=== PATIENT | female | born 1935 | race Caucasian/White ===

== ENCOUNTER → 2018-01-15 15:15 | Outpatient (CLI) | payer MEDICARE, SELFPAY ==
[2018-01-15 17:23] LABS: Absolute Lymphocyte Count 2.33 X10^3/ul (0.83-4.51); Absolute Neutrophil Count 4.8 X10^3/uL (2.0-7.7); Basophil# 0.04 X10^3/uL; Basophil% 0.5 % (0-1); Eosinophil# 0.21 X10^3/uL; Eosinophils% 2.6 % (0-5); Hemoglobin 14.2 g/dl (12.0-15.0); Lymphocyte # 2.33 X10^3/ul (4.0); Lymphocyte % 28.8 % (19-41); Mean Corp Hgb Conc 33.8 g/gl (32-36); Mean Corpuscular Hgb 31.8 pg (27.0-32.0); Mean Corpuscular Volume 94.2 fL (81-99); Mean Platelet Vol. 10.1 fl (6.2-12.0); Monocyte# 0.69 X10^3/uL; Monocyte% 8.5 % (0-10); Neutrophil % 59.5 % (47-70); Platelet Count 302 K/mm3 (150-450); RBC Distribution Width CV 13.3 % (11.6-14.6); RBC Distribution Width SD 44.8 fl (35.1-43.9); Red Blood Count 4.46 M/mm3 (4.2-5.4); White Blood Count 8.1 K/mm3 (4.4-11.0)
[2018-01-15 17:26] LABS: POSITIVE COUNT NO; POSITIVE DIFFERENTIAL NO; POSITIVE MORPHOLOGY NO
[2018-01-15 17:42] LABS: Vitamin D,25 Hydroxy 54.9 ng/mL (29.95-100.01)
[2018-01-15 17:53] LABS: ALB/GLOB Ratio 1.2 RATIO (0.9-2.4); AST(SGOT) 24 U/L (15-37); Alanine Aminotransfer ALT/SGPT 43 U/L (13-56); Alkaline Phosphatase 83 U/L (45-117); Anion Gap 11 (5-15); BUN 15 mg/dL (7-18); BUN/Creat Ratio 14.6 RATIO (10-20); Calcium,Total 9.1 mg/dL (8.5-10.1); Chloride 101 mmol/L (98-107); Creatinine, Serum 1.03 mg/dL (0.55-1.02); EST Glomerular Filtration Rate 55 mL/min (>60); Est Glom Filt Rate - Afr Amer 66 mL/min (>60); Globulin 3.2 g/dL (2.2-4.2); Glucose 78 mg/dL (74-106); Potassium 3.3 mmol/L (3.5-5.1); Protein, Total 7.2 g/dL (6.4-8.2); Sodium Level 138 mmol/L (136-145); Thyroid Stim Hormone (TSH) 1.58 uIU/mL (0.358-3.74)
== END ==
PROVIDERS: Visit Provider Family Medicine Geriatric Medicine
DX: I10 Essential (primary) hypertension (principal); E55.9 Vitamin D deficiency, unspecified
CPT/HCPCS: 36415; 80053; 82306; 84443; 85025

== ENCOUNTER → 2018-02-07 09:58 | Outpatient (CLI) | payer MEDICARE, SELFPAY ==
[2018-02-07 16:37] LABS: Anion Gap 11 (5-15); BUN 16 mg/dL (7-18); BUN/Creat Ratio 15.5 RATIO (10-20); Chloride 103 mmol/L (98-107); Creatinine, Serum 1.03 mg/dL (0.55-1.02); EST Glomerular Filtration Rate 55 mL/min (>60); Est Glom Filt Rate - Afr Amer 66 mL/min (>60); Glucose 69 mg/dL (74-106); Potassium 4.1 mmol/L (3.5-5.1); Sodium Level 138 mmol/L (136-145)
== END ==
PROVIDERS: Family Provider Internal Medicine; PCP Internal Medicine; Visit Provider Family Medicine Geriatric Medicine
DX: E87.6 Hypokalemia (principal)
CPT/HCPCS: 36415; 80048

== ENCOUNTER → 2018-06-29 10:14 | Outpatient (CLI) | payer MEDICARE, SELFPAY | PROVIDERS: Family Provider Family Medicine; PCP Family Medicine; Visit Provider Obstetrics & Gynecology | DX: Z12.31 Encounter for screening mammogram for malignant neoplasm of breast (principal) | CPT/HCPCS: 77063; 77067 ==

== ENCOUNTER → 2018-10-01 08:02 | Outpatient (CLI) | payer MEDICARE, SELFPAY | PROVIDERS: Family Provider Family Medicine; PCP Family Medicine; Referring Provider Nurse Practitioner Family; Visit Provider Nurse Practitioner Family | DX: K57.92 Diverticulitis of intestine, part unspecified, without perforation or abscess without bleeding (principal) ==

== ENCOUNTER → 2018-11-30 07:49 | Outpatient (CLI) | payer MEDICARE, SELFPAY ==
[2018-11-30 10:34] LABS: ALB/GLOB Ratio 1.3 RATIO (0.9-2.4); AST(SGOT) 15 U/L (15-37); Alanine Aminotransfer ALT/SGPT 30 U/L (13-56); Albumin, Serum 3.8 g/dL (3.2-5.0); Alkaline Phosphatase 107 U/L (45-117); Anion Gap 12 (5-15); BUN 18 mg/dL (7-18); BUN/Creat Ratio 16.2 RATIO (10-20); Calcium,Total 9.2 mg/dL (8.5-10.1); Chloride 104 mmol/L (98-107); Cholesterol 291 mg/dL (200); Creatinine, Serum 1.11 mg/dL (0.55-1.02); EST Glomerular Filtration Rate 50 mL/min (>60); Est Glom Filt Rate - Afr Amer 61 mL/min (>60); Glucose 90 mg/dL (74-106); High Density Lipoprotein 49 mg/dL; Potassium 4.5 mmol/L (3.5-5.1); Protein, Total 6.8 g/dL (6.4-8.2); Sodium Level 143 mmol/L (136-145); Triglycerides 223 mg/dL; Very Low Density Lipoprotein 45 mg/dL (5-40)
== END ==
PROVIDERS: Family Provider Family Medicine; PCP Family Medicine; Referring Provider Family Medicine; Visit Provider Family Medicine
DX: E78.5 Hyperlipidemia, unspecified (principal)
CPT/HCPCS: 36415; 80053; 80061

== ENCOUNTER → 2019-01-11 11:36 | Outpatient (CLI) | payer MEDICARE, SELFPAY | PROVIDERS: Family Provider Family Medicine; PCP Family Medicine; Referring Provider Urology; Visit Provider Urology | DX: N39.0 Urinary tract infection, site not specified (principal) | CPT/HCPCS: 87086; 87088; 87186 ==

== ENCOUNTER → 2019-02-26 11:20 | Outpatient (CLI) | payer MEDICARE, SELFPAY ==
--- NOTE | 2019-02-26 11:26 | US_ITS ---
STUDY: RENAL ULTRASOUND - COMPLETE REASON FOR EXAM: Female, 83 years old. Recurrent urinary tract infections. TECHNIQUE: Ultrasound evaluation of the kidneys was performed with real-time and static chavarria-scale imaging. COMPARISON: CT abdomen and pelvis 12/12/2014. FINDINGS: RIGHT KIDNEY: 10.3 x 5.4 x 4.2 cm. Normal cortical thickness 1.3 cm. Normal cortical echotexture. There is no mass, calculus or hydronephrosis. Right renal cyst 16 x 15 x 15 mm, simple cystic features. LEFT KIDNEY: 10.7 x 4.9 x 4.6 cm. Normal cortical thickness 1.6 cm, normal cortical echotexture. There is no hydronephrosis, mass or calculus. Left renal cysts measuring 31, and 12 mm. Simple cystic features. BLADDER: Distended volume 165.4 mL. Post void volume 22.8 mL, small postvoid residual. Urinary bladder appears normal in caliber, contour and wall thickness. There is no intraluminal debris. Bilateral ureteral jets are visible. US/Kidney and Bladder IMPRESSION: Benign bilateral renal cysts. Otherwise unremarkable sonographic features of each kidney. Electronically Signed: Jalen Clark MD at 14:43 EDT Tel , Service support ,
== END ==
PROVIDERS: Family Provider Family Medicine; PCP Family Medicine; Referring Provider Urology; Visit Provider Urology
DX: Z87.440 Personal history of urinary (tract) infections (principal)
CPT/HCPCS: 76770

== ENCOUNTER → 2019-12-13 09:38 | Outpatient (CLI) | payer MEDICARE, SELFPAY ==
[2019-12-13 13:15] LABS: ALB/GLOB Ratio 1.4 RATIO (0.9-2.4); AST(SGOT) 16 U/L (15-37); Alanine Aminotransfer ALT/SGPT 24 U/L (13-56); Alkaline Phosphatase 75 U/L (45-117); Anion Gap 7 (5-15); BUN 13 mg/dL (7-18); BUN/Creat Ratio 12.7 RATIO (10-20); Calcium,Total 9.5 mg/dL (8.5-10.1); Chloride 102 mmol/L (98-107); Cholesterol 309 mg/dL (200); Creatinine, Serum 1.02 mg/dL (0.55-1.02); EST Glomerular Filtration Rate 55 mL/min (>60); Est Glom Filt Rate - Afr Amer 67 mL/min (>60); Globulin 2.8 g/dL (2.2-4.2); Glucose 89 mg/dL (74-106); High Density Lipoprotein 55 mg/dL; Potassium 3.5 mmol/L (3.5-5.1); Protein, Total 6.8 g/dL (6.4-8.2); Sodium Level 139 mmol/L (136-145); Triglycerides 166 mg/dL; Very Low Density Lipoprotein 33 mg/dL (5-40)
== END ==
PROVIDERS: PCP Family Medicine; Referring Provider Family Medicine; Visit Provider Family Medicine
DX: I10 Essential (primary) hypertension (principal)
CPT/HCPCS: 36415; 80053; 80061

== ENCOUNTER → 2019-12-24 08:13 | Outpatient (CLI) | payer MEDICARE, SELFPAY ==
--- NOTE | 2019-12-24 08:15 | BD_ITS ---
STUDY: DUAL ENERGY X-RAY ABSORPTIOMETRY / DXA REASON FOR EXAM: Female, 84 years old. Age of total hysterectomy 29. Pat is 151.4# and 64.25 and quot; a loss of 2.75 and quot; per pat. Past hx of taking an HRT. Patient takes calcium and a multi-vit. Takes HCTZ. Exercises a lot. Hx of L$-S1 laminectomy. TECHNIQUE: Bone Mineral Density (BMD) measurements of lumbar spine and bilateral hips were obtained. COMPARISON: Comparison is made with prior examination dated July 27, 2017. FINDINGS: Lumbar Spine (L1-L4): g/cm2 (1.179) / T-score (0.1) / Z-score (2.0) Findings are suggestive of normal bone density with a low fracture risk. Left Femur Total: g/cm2 (0.954) / T-score (-0.4) / Z-score (1.7) Left Femoral Neck: g/cm2 (0.922) / T-score (-0.8) / Z-score (1.5) Right Femur Total: g/cm2 (0.893) / T-score (-0.9) / Z-score (1.3) Right Femoral Neck: g/cm2 (0.877) / T-score (-1.2) / Z-score (1.1) The T-Scores on the most recent prior examination were: Lumbar Spine (L1-L4): There has been worsening of bone density since the previous examination. Left Femur Total: which represents a worsening of 4.8%. Right Femur Total: which represents a worsening of 6.9%. BD/Dexa Bone Density Study IMPRESSION: The patient is considered osteopenic as outlined below according to World [employer] Organization (WHO) criteria with a low fracture risk. There has been worsening of bone density since the previous examination. Reference Information: The T-score is the number of standard deviations above or below the standard which is normal for young adults at their peak bone mineral density. The World Health Organization (WHO) interprets the T-scores as follows: Above -1 Normal bone density Between -1 and -2.5 Osteopenia Equal to / or below -2.5 Osteoporosis As a practical clinical guideline, osteopenia may be graded as follows: Mild -1 through -1.5 Moderate -1.6 through -2.0 Severe -2.1 through -2.4 The Z-score is the number of standard deviations above or below age-matched controls. A Z-score of less than -1.5 would be considered abnormal. References: 1. NIH Osteoporosis and Related Bone Diseases http://www.osteo.org 2. International Society for Clinical Densitometry http://www.iscd.org 3. National Osteoporosis Foundation http://www.nof.org Electronically Signed: Ciro Sawyer, at 9:27 EST , Service support ,
== END ==
PROVIDERS: PCP Family Medicine; Referring Provider Family Medicine; Visit Provider Family Medicine
DX: Z00.00 Encounter for general adult medical examination without abnormal findings (principal); Z78.0 Asymptomatic menopausal state
CPT/HCPCS: 77080

== ENCOUNTER → 2021-03-24 08:13 | Outpatient (CLI) | payer MEDICARE, SELFPAY ==
--- NOTE | 2021-03-24 08:25 | CT_ITS ---
STUDY: CT ABDOMEN AND PELVIS WITHOUT CONTRAST REASON FOR EXAM: Female, 85 years old. L FLANK PAIN . UTI RADIATION DOSAGE (If Supplied By Facility): CTDIvol = ( 8.64 ) mGy, DLP = ( 373.54 ) mGycm TECHNIQUE: Transaxial images were obtained from the dome of the diaphragm to the symphysis pubis without oral contrast, and without intravenous contrast. Sagittal and coronal images were reconstructed. Individualized dose optimization techniques were used for this CT. COMPARISON: Comparison is made with prior study dated 12/20/2014. FINDINGS: Mild degree of increased markings at the lung bases suggestive of underlying atelectasis and/or scarring. These have improved as compared to prior study. The visualized portions of the heart are within normal limits. Normal liver. Findings suggestive of a possible small gallstones. Normal spleen. Normal pancreas. Normal bilateral adrenal glands. Normal right kidney. 2 cm cyst in the upper pole of the left kidney. There is a small hiatal hernia. Normal small intestine. There are multiple colonic diverticula consistent with diverticulosis. The patient is status post appendectomy. There is diffuse atherosclerotic calcification of the abdominal aorta and its major visceral branches, without a demonstrated aneurysm. Normal inferior vena cava. Normal retroperitoneum. Normal urinary bladder. There is absence of the uterus consistent with a prior hysterectomy. Small bilateral inguinal hernias containing fat. There are diffuse degenerative changes of the visualized lumbar spine. Minimal anterior listhesis of L3 on L4. CT/Abdomen/Pelvis without Cont IMPRESSION: Sigmoid diverticulosis. Small hiatal hernia. 2 cm cyst in the upper pole of the left kidney. 1.5 cm cyst in the lower pole of the left kidney. Questionable small gallstones. Electronically Signed: Ciro Sawyer MD at 9:23 EDT , Service support ,
== END ==
PROVIDERS: PCP Family Medicine; Referring Provider Urology; Visit Provider Urology
DX: N39.0 Urinary tract infection, site not specified (principal); K44.9 Diaphragmatic hernia without obstruction or gangrene; K57.30 Diverticulosis of large intestine without perforation or abscess without bleeding
CPT/HCPCS: 74176

== ENCOUNTER → 2021-08-31 08:38 | Outpatient (CLI) | payer MEDICARE, SELFPAY ==
--- NOTE | 2021-08-31 08:47 | US_ITS ---
STUDY: RENAL ULTRASOUND - COMPLETE REASON FOR EXAM: Female, 85 years old. L FLANK PAIN/RECURRENT UTI TECHNIQUE: Ultrasound evaluation of the kidneys was performed with real-time and static cahvarria-scale imaging. COMPARISON: Comparison is made with prior study dated 02/26/2019. FINDINGS: RIGHT KIDNEY: Normal location of the right kidney, which is normal in size. The right kidney measures 10.9 cm x 4.2 sign by 4.1 cm. There is a normal cortex of the right kidney. The renal cortex measures 1.4 cm. There is a 2 cm x 1.9 cm x 1.7 cm right renal cyst. There are no right renal calculi. There is no right hydronephrosis. DISTAL RIGHT URETER: There is non-visualization of the distal right ureter. There is no demonstrated right ureterovesical junction calculus. There is a visualized right ureteral jet. LEFT KIDNEY: Normal location of the left kidney, which is normal in size. The left kidney measures 13.8 cm x 5.27 x 6.3 cm. There is a normal cortex of the left kidney. The renal cortex measures 2.1 cm. Multiple left renal cysts are seen. The largest measures 7.4 cm x 6.6 x 6.6 cm. There are no left renal calculi. There is no left hydronephrosis. DISTAL LEFT URETER: There is non-visualization of the distal left ureter. There is no demonstrated left ureterovesical junction calculus. There is a visualized left ureteral jet. BLADDER: The distended urinary bladder has a volume of 173.6 ml. There is a normal wall thickness of the distended urinary bladder. There is no demonstrated mass within the urinary bladder. There are no demonstrated bladder calculi. US/Kidney and Bladder IMPRESSION: Bilateral renal cysts more prominent on the left side. Electronically Signed: Ciro Sawyer MD at 13:45 EST , Service support ,
== END ==
PROVIDERS: PCP Family Medicine; Referring Provider Urology; Visit Provider Urology
DX: N39.0 Urinary tract infection, site not specified (principal); R10.9 Unspecified abdominal pain
CPT/HCPCS: 76770

== ENCOUNTER 2022-01-18 09:05 | Outpatient (CLI) | payer MEDICARE, SELFPAY ==
[2022-01-18 12:17] LABS: Absolute Lymphocyte Count 1.84 X10^3/uL (0.83-4.51); Absolute Neutrophil Count 5.2 X10^3/uL (2.0-7.7); Basophil# 0.05 X10^3/uL; Basophil% 0.6 % (0-1); Eosinophil# 0.35 X10^3/uL; Eosinophils% 4.3 % (0-5); Hematocrit 40.7 % (37-47); Hemoglobin 13.1 g/dL (12.0-15.0); Lymphocyte # 1.84 X10^3/ul (0.83-4.51); Lymphocyte % 22.9 % (19-41); Mean Corp Hgb Conc 32.2 g/dL (32-36); Mean Corpuscular Hgb 31.3 pg (27.0-32.0); Mean Corpuscular Volume 97.4 fL (81-99); Monocyte# 0.63 X10^3/uL; Monocyte% 7.8 % (0-10); NRBC Flagged by Analyzer 0 % (0-5); Neutrophil # 5.16 X10^3/uL (2.7-7.7); Neutrophil % 64.2 % (47-70); Platelet Count 323 K/mm3 (150-450); RBC Distribution Width CV 13.9 % (11.6-14.6); RBC Distribution Width SD 50.2 fl (35.1-43.9); Red Blood Count 4.18 M/mm3 (4.2-5.4); White Blood Count 8.1 K/mm3 (4.4-11.0)
[2022-01-18 12:34] LABS: Vitamin D,25 Hydroxy 91.9 ng/mL
[2022-01-18 13:11] LABS: ALB/GLOB Ratio 1.1 RATIO (0.9-2.4); AST(SGOT) 15 U/L (15-37); Alanine Aminotransfer ALT/SGPT 20 U/L (13-56); Albumin, Serum 3.9 g/dL (3.2-5.0); Alkaline Phosphatase 75 U/L (45-117); Anion Gap 8 (5-15); BUN 27 mg/dL (7-18); BUN/Creat Ratio 14.8 RATIO (10-20); Calcium,Total 9.7 mg/dL (8.5-10.1); Chloride 102 mmol/L (98-107); Cholesterol 300 mg/dL (200); Creatinine, Serum 1.82 mg/dL (0.55-1.02); EST Glomerular Filtration Rate 28 mL/min (>60); Est Glom Filt Rate - Afr Amer 34 mL/min (>60); Globulin 3.5 g/dL (2.2-4.2); Glucose 92 mg/dL (74-106); High Density Lipoprotein 54 mg/dL; Magnesium 2.2 mg/dL (1.6-2.6); Potassium 3.8 mmol/L (3.5-5.1); Protein, Total 7.4 g/dL (6.4-8.2); Sodium Level 135 mmol/L (136-145); Thyroid Stim Hormone (TSH) 2.01 uIU/mL (0.358-3.74); Triglycerides 232 mg/dL; Very Low Density Lipoprotein 46 mg/dL (5-40)
[2022-01-18 13:21] LABS: Hemoglobin A1c 5.1 % (3.8-5.6)
== END 2022-01-18 23:59 | disposition home or self-care (01) ==
LOC: BIMLAB 09:07
PROVIDERS: PCP Internal Medicine; Referring Provider Internal Medicine; Visit Provider Internal Medicine
DX: E86.0 Dehydration (principal); M85.80 Other specified disorders of bone density and structure, unspecified site; I10 Essential (primary) hypertension; K21.9 Gastro-esophageal reflux disease without esophagitis; E78.5 Hyperlipidemia, unspecified; R73.9 Hyperglycemia, unspecified; Z86.73 Personal history of transient ischemic attack (TIA), and cerebral infarction without residual deficits
CPT/HCPCS: 36415; 80053; 80061; 82306; 83036; 83735; 84443; 85025

== ENCOUNTER 2022-01-25 08:49 | Outpatient (CLI) | payer MEDICARE, SELFPAY ==
[2022-01-25 12:43] LABS: Anion Gap 9 (5-15); BUN 35 mg/dL (7-18); BUN/Creat Ratio 20.1 RATIO (10-20); Calcium,Total 9.5 mg/dL (8.5-10.1); Chloride 102 mmol/L (98-107); Creatinine, Serum 1.74 mg/dL (0.55-1.02); EST Glomerular Filtration Rate 30 mL/min (>60); Est Glom Filt Rate - Afr Amer 36 mL/min (>60); Glucose 98 mg/dL (74-106); Sodium Level 134 mmol/L (136-145)
== END 2022-01-25 23:59 | disposition home or self-care (01) ==
LOC: BIMLAB 08:50
PROVIDERS: PCP Internal Medicine; Referring Provider Internal Medicine; Visit Provider Internal Medicine
DX: I10 Essential (primary) hypertension (principal); R79.89 Other specified abnormal findings of blood chemistry
CPT/HCPCS: 36415; 80048

== ENCOUNTER → 2022-07-21 | Outpatient (CLI) | payer MEDICARE, SELFPAY ==
[2022-07-21 09:30] LABS: Absolute Lymphocyte Count 1.93 X10^3/uL (0.83-4.51); Absolute Neutrophil Count 5.9 X10^3/uL (2.0-7.7); Basophil# 0.06 X10^3/uL; Basophil% 0.7 % (0-1); Eosinophil# 0.41 X10^3/uL; Eosinophils% 4.6 % (0-5); Hematocrit 41.1 % (37-47); Hemoglobin 13.4 g/dL (12.0-15.0); Lymphocyte # 1.93 X10^3/ul (0.83-4.51); Lymphocyte % 21.6 % (19-41); Mean Corp Hgb Conc 32.6 g/dL (32-36); Mean Corpuscular Volume 98.1 fL (81-99); Mean Platelet Vol. 9.6 fl (6.2-12.0); Monocyte# 0.64 X10^3/uL; Monocyte% 7.2 % (0-10); NRBC Flagged by Analyzer 0 % (0-5); Neutrophil # 5.86 X10^3/uL (2.7-7.7); Neutrophil % 65.6 % (47-70); Platelet Count 293 K/mm3 (150-450); RBC Distribution Width CV 13.3 % (11.6-14.6); Red Blood Count 4.19 M/mm3 (4.2-5.4); White Blood Count 8.9 K/mm3 (4.4-11.0)
[2022-07-21 10:12] LABS: ALB/GLOB Ratio 1.2 RATIO (0.9-2.4); AST(SGOT) 20 U/L (15-37); Alanine Aminotransfer ALT/SGPT 30 U/L (13-56); Alkaline Phosphatase 93 U/L (45-117); Anion Gap 7 (5-15); BUN 28 mg/dL (7-18); BUN/Creat Ratio 18.2 RATIO (10-20); Calcium,Total 9.5 mg/dL (8.5-10.1); Chloride 105 mmol/L (98-107); Cholesterol 313 mg/dL (200); Creatinine, Serum 1.54 mg/dL (0.55-1.02); EST Glomerular Filtration Rate 34 mL/min (>60); Est Glom Filt Rate - Afr Amer 41 mL/min (>60); Globulin 3.4 g/dL (2.2-4.2); Glucose 100 mg/dL (74-106); High Density Lipoprotein 57 mg/dL; Potassium 4.4 mmol/L (3.5-5.1); Protein, Total 7.4 g/dL (6.4-8.2); Sodium Level 140 mmol/L (136-145); Triglycerides 195 mg/dL; Very Low Density Lipoprotein 39 mg/dL (5-40)
== END | disposition home or self-care (01) ==
LOC: LAB 09:01
PROVIDERS: PCP Internal Medicine; Visit Provider Internal Medicine
DX: I10 Essential (primary) hypertension (principal); E78.5 Hyperlipidemia, unspecified; R79.89 Other specified abnormal findings of blood chemistry; Z86.73 Personal history of transient ischemic attack (TIA), and cerebral infarction without residual deficits
CPT/HCPCS: 36415; 80053; 80061; 85025

== ENCOUNTER → 2023-01-19 | Outpatient (CLI) | payer MEDICARE, SELFPAY ==
[2023-01-19 16:38] LABS: Absolute Lymphocyte Count 2.03 X10^3/uL (0.83-4.51); Absolute Neutrophil Count 4.2 X10^3/uL (2.0-7.7); Basophil# 0.05 X10^3/uL; Basophil% 0.7 % (0-1); Eosinophil# 0.32 X10^3/uL; Eosinophils% 4.5 % (0-5); Hematocrit 42.5 % (37-47); Hemoglobin 13.5 g/dL (12.0-15.0); Lymphocyte # 2.03 X10^3/ul (0.83-4.51); Lymphocyte % 28.2 % (19-41); Mean Corp Hgb Conc 31.8 g/dL (32-36); Mean Corpuscular Hgb 30.9 pg (27.0-32.0); Mean Corpuscular Volume 97.3 fL (81-99); Mean Platelet Vol. 9.8 fl (6.2-12.0); Monocyte# 0.58 X10^3/uL; Monocyte% 8.1 % (0-10); NRBC Flagged by Analyzer 0 % (0-5); Neutrophil # 4.18 X10^3/uL (2.7-7.7); Neutrophil % 58.1 % (47-70); Platelet Count 283 K/mm3 (150-450); RBC Distribution Width CV 13.1 % (11.6-14.6); RBC Distribution Width SD 46.3 fl (35.1-43.9); Red Blood Count 4.37 M/mm3 (4.2-5.4); White Blood Count 7.2 K/mm3 (4.4-11.0)
[2023-01-19 17:16] LABS: Vitamin B12 339 pg/mL (211-911); Vitamin D,25 Hydroxy 105.2 ng/mL
[2023-01-19 17:20] LABS: ALB/GLOB Ratio 1.3 RATIO (0.9-2.4); AST(SGOT) 13 U/L (15-37); Alanine Aminotransfer ALT/SGPT 19 U/L (13-56); Albumin, Serum 4.1 g/dL (3.2-5.0); Alkaline Phosphatase 86 U/L (45-117); Anion Gap 7 (5-15); BUN 31 mg/dL (7-18); BUN/Creat Ratio 17.3 RATIO (10-20); Calcium,Total 9.5 mg/dL (8.5-10.1); Chloride 101 mmol/L (98-107); Cholesterol 282 mg/dL (200); Creatinine, Serum 1.79 mg/dL (0.55-1.02); EST Glomerular Filtration Rate 29 mL/min (>60); Est Glom Filt Rate - Afr Amer 35 mL/min (>60); Globulin 3.1 g/dL (2.2-4.2); Glucose 99 mg/dL (74-106); High Density Lipoprotein 49 mg/dL; Magnesium 2.4 mg/dL (1.6-2.6); Potassium 3.6 mmol/L (3.5-5.1); Protein, Total 7.2 g/dL (6.4-8.2); Sodium Level 136 mmol/L (136-145); Thyroid Stim Hormone (TSH) 1.53 uIU/mL (0.358-3.74); Triglycerides 239 mg/dL; Very Low Density Lipoprotein 48 mg/dL (5-40)
== END | disposition home or self-care (01) ==
LOC: BIMLAB 14:59
PROVIDERS: PCP Internal Medicine; Visit Provider Internal Medicine
DX: R79.89 Other specified abnormal findings of blood chemistry (principal); Z13.220 Encounter for screening for lipoid disorders; I10 Essential (primary) hypertension; E78.5 Hyperlipidemia, unspecified; E53.8 Deficiency of other specified B group vitamins; E55.9 Vitamin D deficiency, unspecified; K21.9 Gastro-esophageal reflux disease without esophagitis; M54.2 Cervicalgia; G89.29 Other chronic pain
CPT/HCPCS: 36415; 80053; 80061; 82306; 82607; 83735; 84443; 85025

== ENCOUNTER → 2023-07-17 | Outpatient (CLI) | payer MEDICARE, SELFPAY ==
[2023-07-17 09:15] LABS: Absolute Neutrophil Count 5.7 X10^3/uL (2.0-7.7); Basophil# 0.06 X10^3/uL; Basophil% 0.7 % (0-1); Eosinophil# 0.39 X10^3/uL; Eosinophils% 4.5 % (0-5); Hematocrit 41.8 % (37-47); Hemoglobin 13.8 g/dL (12.0-15.0); Lymphocyte % 21.8 % (19-41); Mean Corpuscular Hgb 32.4 pg (27.0-32.0); Mean Corpuscular Volume 98.1 fL (81-99); Mean Platelet Vol. 9.1 fl (6.2-12.0); Monocyte# 0.65 X10^3/uL; Monocyte% 7.5 % (0-10); NRBC Flagged by Analyzer 0 % (0-5); Neutrophil # 5.69 X10^3/uL (2.7-7.7); Neutrophil % 65.2 % (47-70); Platelet Count 265 K/mm3 (150-450); RBC Distribution Width CV 13.1 % (11.6-14.6); RBC Distribution Width SD 46.9 fl (35.1-43.9); Red Blood Count 4.26 M/mm3 (4.2-5.4); White Blood Count 8.7 K/mm3 (4.4-11.0)
[2023-07-17 09:46] LABS: Vitamin D,25 Hydroxy 58.3 ng/mL
[2023-07-17 10:00] LABS: ALB/GLOB Ratio 1.1 RATIO (0.9-2.4); AST(SGOT) 21 U/L (15-37); Alanine Aminotransfer ALT/SGPT 28 U/L (13-56); Albumin, Serum 3.9 g/dL (3.2-5.0); Alkaline Phosphatase 93 U/L (45-117); Anion Gap 7 (5-15); BUN 27 mg/dL (7-18); BUN/Creat Ratio 16.9 RATIO (10-20); Chloride 102 mmol/L (98-107); Cholesterol 313 mg/dL (200); EST Glomerular Filtration Rate 32 mL/min (>60); Est Glom Filt Rate - Afr Amer 39 mL/min (>60); Globulin 3.4 g/dL (2.2-4.2); Glucose 97 mg/dL (74-106); High Density Lipoprotein 56 mg/dL; Potassium 3.8 mmol/L (3.5-5.1); Protein, Total 7.3 g/dL (6.4-8.2); Sodium Level 135 mmol/L (136-145); Thyroid Stim Hormone (TSH) 1.95 uIU/mL (0.358-3.74); Triglycerides 167 mg/dL; Very Low Density Lipoprotein 33 mg/dL (5-40)
== END | disposition home or self-care (01) ==
LOC: LAB 08:55
PROVIDERS: PCP Internal Medicine; Referring Provider Internal Medicine; Visit Provider Internal Medicine
DX: E78.5 Hyperlipidemia, unspecified (principal); R79.89 Other specified abnormal findings of blood chemistry; I10 Essential (primary) hypertension; E55.9 Vitamin D deficiency, unspecified; K21.9 Gastro-esophageal reflux disease without esophagitis; Z86.73 Personal history of transient ischemic attack (TIA), and cerebral infarction without residual deficits
CPT/HCPCS: 36415; 80053; 80061; 82306; 84443; 85025

== ENCOUNTER → 2024-01-15 | Outpatient (CLI) | payer MEDICARE, SELFPAY ==
[2024-01-15 12:41] LABS: Absolute Lymphocyte Count 1.38 X10^3/uL (0.83-4.51); Absolute Neutrophil Count 5.3 X10^3/uL (2.0-7.7); Basophil# 0.06 X10^3/uL; Basophil% 0.8 % (0-1); Eosinophils% 3.9 % (0-5); Hemoglobin 12.9 g/dL (12.0-15.0); Lymphocyte # 1.38 X10^3/ul (0.83-4.51); Lymphocyte % 17.9 % (19-41); Mean Corp Hgb Conc 31.5 g/dL (32-36); Mean Corpuscular Hgb 30.6 pg (27.0-32.0); Mean Corpuscular Volume 97.2 fL (81-99); Monocyte# 0.61 X10^3/uL; Monocyte% 7.9 % (0-10); NRBC Flagged by Analyzer 0 % (0-5); Neutrophil # 5.34 X10^3/uL (2.7-7.7); Neutrophil % 69.2 % (47-70); Platelet Count 271 K/mm3 (150-450); RBC Distribution Width CV 13.5 % (11.6-14.6); RBC Distribution Width SD 48.5 fl (35.1-43.9); Red Blood Count 4.22 M/mm3 (4.2-5.4); White Blood Count 7.7 K/mm3 (4.4-11.0)
[2024-01-15 13:25] LABS: Vitamin D,25 Hydroxy 59.5 ng/mL
[2024-01-15 13:29] LABS: ALB/GLOB Ratio 1.2 RATIO (0.9-2.4); AST(SGOT) 17 U/L (15-37); Alanine Aminotransfer ALT/SGPT 19 U/L (13-56); Albumin, Serum 3.7 g/dL (3.2-5.0); Alkaline Phosphatase 89 U/L (45-117); Anion Gap 5 (5-15); BUN 29 mg/dL (7-18); BUN/Creat Ratio 18.4 RATIO (10-20); Calcium,Total 9.5 mg/dL (8.5-10.1); Chloride 109 mmol/L (98-107); Cholesterol 277 mg/dL (200); Creatinine, Serum 1.58 mg/dL (0.55-1.02); EST Glomerular Filtration Rate 33 mL/min (>60); Est Glom Filt Rate - Afr Amer 40 mL/min (>60); Globulin 3.2 g/dL (2.2-4.2); Glucose 94 mg/dL (74-106); High Density Lipoprotein 53 mg/dL; Potassium 4.6 mmol/L (3.5-5.1); Protein, Total 6.9 g/dL (6.4-8.2); Sodium Level 141 mmol/L (136-145); Thyroid Stim Hormone (TSH) 1.65 uIU/mL (0.358-3.74); Triglycerides 162 mg/dL; Very Low Density Lipoprotein 32 mg/dL (5-40)
== END | disposition home or self-care (01) ==
LOC: BIMLAB 09:02
PROVIDERS: PCP Internal Medicine; Visit Provider Internal Medicine
DX: E55.9 Vitamin D deficiency, unspecified (principal); I63.9 Cerebral infarction, unspecified; R79.89 Other specified abnormal findings of blood chemistry; M54.2 Cervicalgia; G89.29 Other chronic pain; I34.1 Nonrheumatic mitral (valve) prolapse; K21.9 Gastro-esophageal reflux disease without esophagitis; I10 Essential (primary) hypertension
CPT/HCPCS: 36415; 80053; 80061; 82306; 84443; 85025

== ENCOUNTER → 2024-07-15 | Outpatient (CLI) | payer MEDICARE, SELFPAY ==
[2024-07-15 12:24] LABS: Absolute Lymphocyte Count 1.29 X10^3/uL (0.83-4.51); Absolute Neutrophil Count 5.7 X10^3/uL (2.0-7.7); Basophil# 0.05 X10^3/uL; Basophil% 0.6 % (0-1); Eosinophil# 0.28 X10^3/uL; Eosinophils% 3.5 % (0-5); Hematocrit 42.6 % (37-47); Hemoglobin 13.7 g/dL (12.0-15.0); Lymphocyte # 1.29 X10^3/ul (0.83-4.51); Lymphocyte % 16.2 % (19-41); Mean Corp Hgb Conc 32.2 g/dL (32-36); Mean Corpuscular Hgb 31.4 pg (27.0-32.0); Mean Corpuscular Volume 97.7 fL (81-99); Mean Platelet Vol. 9.8 fl (6.2-12.0); Monocyte% 7.5 % (0-10); NRBC Flagged by Analyzer 0 % (0-5); Neutrophil # 5.72 X10^3/uL (2.7-7.7); Neutrophil % 71.8 % (47-70); Platelet Count 274 K/mm3 (150-450); RBC Distribution Width CV 13.2 % (11.6-14.6); Red Blood Count 4.36 M/mm3 (4.2-5.4)
[2024-07-15 13:08] LABS: ALB/GLOB Ratio 1.2 RATIO (0.9-2.4); AST(SGOT) 14 U/L (15-37); Alanine Aminotransfer ALT/SGPT 18 U/L (13-56); Albumin, Serum 3.9 g/dL (3.2-5.0); Alkaline Phosphatase 82 U/L (45-117); Anion Gap 8 (5-15); BUN 24 mg/dL (7-18); BUN/Creat Ratio 16.4 RATIO (10-20); Calcium,Total 9.6 mg/dL (8.5-10.1); Chloride 105 mmol/L (98-107); Cholesterol 296 mg/dL (200); Creatinine, Serum 1.46 mg/dL (0.55-1.02); EST Glomerular Filtration Rate 36 mL/min (>60); Est Glom Filt Rate - Afr Amer 44 mL/min (>60); Globulin 3.3 g/dL (2.2-4.2); Glucose 96 mg/dL (74-106); High Density Lipoprotein 63 mg/dL; Magnesium 2.2 mg/dL (1.6-2.6); Protein, Total 7.2 g/dL (6.4-8.2); Sodium Level 139 mmol/L (136-145); Triglycerides 249 mg/dL; Very Low Density Lipoprotein 50 mg/dL (5-40)
== END | disposition home or self-care (01) ==
LOC: BIMLAB 09:03
PROVIDERS: PCP Internal Medicine; Referring Provider Internal Medicine; Visit Provider Internal Medicine
DX: I10 Essential (primary) hypertension (principal); E78.5 Hyperlipidemia, unspecified; K21.9 Gastro-esophageal reflux disease without esophagitis; E55.9 Vitamin D deficiency, unspecified; R79.89 Other specified abnormal findings of blood chemistry; Z13.220 Encounter for screening for lipoid disorders; Z86.73 Personal history of transient ischemic attack (TIA), and cerebral infarction without residual deficits
CPT/HCPCS: 36415; 80053; 80061; 82306; 83735; 84443; 85025

== ENCOUNTER → 2025-01-15 | Outpatient (CLI) | payer MEDICARE, SELFPAY ==
[2025-01-15 13:06] LABS: Absolute Lymphocyte Count 1.38 X10^3/uL (0.83-4.51); Absolute Neutrophil Count 9.6 X10^3/uL (2.0-7.7); Basophil# 0.04 X10^3/uL; Basophil% 0.3 % (0-1); Eosinophil# 0.16 X10^3/uL; Eosinophils% 1.3 % (0-5); Erythrocyte Sedimentation Rate 34 mm/hr (0-30); Hematocrit 38.2 % (37-47); Hemoglobin 12.5 g/dL (12.0-15.0); Lymphocyte # 1.38 X10^3/ul (0.83-4.51); Lymphocyte % 11.5 % (19-41); Mean Corp Hgb Conc 32.7 g/dL (32-36); Mean Corpuscular Hgb 30.3 pg (27.0-32.0); Mean Corpuscular Volume 92.5 fL (81-99); Mean Platelet Vol. 8.9 fl (6.2-12.0); Monocyte# 0.73 X10^3/uL; Monocyte% 6.1 % (0-10); NRBC Flagged by Analyzer 0 % (0-5); Neutrophil % 80.5 % (47-70); Platelet Count 596 K/mm3 (150-450); RBC Distribution Width CV 12.6 % (11.6-14.6); RBC Distribution Width SD 43.1 fl (35.1-43.9); Red Blood Count 4.13 M/mm3 (4.2-5.4)
[2025-01-15 13:33] LABS: ALB/GLOB Ratio 0.7 RATIO (0.9-2.4); AST(SGOT) 15 U/L (<=31); Alanine Aminotransfer ALT/SGPT 11 U/L (<=34); Alkaline Phosphatase 118 U/L (35-104); Anion Gap 16 (5-15); BUN 21 mg/dL (4-19); Calcium,Total 8.6 mg/dL (7.6-11.0); Carbon Dioxide 20.8 mmol/L (21.0-32.0); Chloride 97 mmol/L (98-108); Creatinine, Serum 1.39 mg/dL (0.70-1.20); EST Glomerular Filtration Rate 36 (>60); Free T3 2.5 pg/mL (2.18-3.98); Globulin 4.5 g/dL (2.2-4.2); Glucose 76 mg/dL (70-99); Magnesium 2.1 mg/dL (1.5-2.2); Potassium 4.3 mmol/L (3.3-5.1); Protein, Total 7.6 g/dL (5.9-8.4); Sodium Level 134 mmol/L (133-145); Total Bilirubin 0.45 mg/dL (0.00-1.30); Vitamin B12 652 pg/mL (180-914); Vitamin D,25 Hydroxy 66.2 ng/mL (30-100)
[2025-01-16 12:08] LABS: ANTINUCLEAR ANTIBODIES DIRECT Positive (Negative); Anti-Centromere B Ab <0.2 AI (0.0-0.9); Anti-Chromatin <0.2 AI (0.0-0.9); Anti-Jo <0.2 AI (0.0-0.9); Anti-Scleroderma-70 AB <0.2 AI (0.0-0.9); Anti-dsDNA Ab <1 IU/mL (0-9); SJOGREN'S Anti-SS-A test < 0.2 AI (0.0-0.9); SJOGREN'S Anti-SS-B test < 0.2 AI (0.0-0.9); Smith Ab <0.2 AI (0.0-0.9)
[2025-01-16 19:23] LABS: Rheumatoid Factor 12.9 IU/mL (<15)
== END | disposition home or self-care (01) ==
LOC: BIMLAB 09:45
PROVIDERS: PCP Internal Medicine; Referring Provider Internal Medicine; Visit Provider Internal Medicine
DX: R53.83 Other fatigue (principal); M35.3 Polymyalgia rheumatica; E55.9 Vitamin D deficiency, unspecified; E53.8 Deficiency of other specified B group vitamins
CPT/HCPCS: 36415; 80053; 82306; 82607; 83735; 84439; 84443; 84481; 85025; 85652; 86038; 86140; 86225; 86235; 86431

== ENCOUNTER → 2025-03-19 | Outpatient (CLI) | payer MEDICARE, SELFPAY ==
[2025-03-19 12:28] LABS: Erythrocyte Sedimentation Rate 11 mm/hr (0-30)
== END | disposition home or self-care (01) ==
LOC: BIMLAB 09:37
PROVIDERS: PCP Internal Medicine; Referring Provider Internal Medicine; Visit Provider Internal Medicine
DX: M35.3 Polymyalgia rheumatica (principal)
CPT/HCPCS: 36415; 85652; 86140

== ENCOUNTER 2025-09-08 08:59 | Inpatient (IN) | payer MEDICARE, SELFPAY ==
[2025-09-08] VITALS (19 sets, daily range): BP systolic 125–198; BP diastolic 99–174; PULSE 107–124; RESP 16–31; TEMP 36.4–36.9; O2SAT 86–98; BMI 24.7; BMI 23.4
--- NOTE | 2025-09-08 09:12 | RAD_ITS ---
PROCEDURE: CHEST 1 VIEW (PORTABLE) 09/08/2025 REASON FOR EXAM: CHEST PAIN TECHNIQUE: Frontal view of the chest. COMPARISON: None FINDINGS: Hardware: EKG electrodes are seen. Heart: Heart is nonenlarged. Lungs: Lungs are clear. Bones: Degenerative changes are identified within the thoracic spine. RAD/Chest 1 View (Portable) IMPRESSION: No Acute Findings. Reading Location: [id number]
--- NOTE | 2025-09-08 09:12 | EKG12_ITS ---
Test Reason : sob Blood Pressure : */* mmHG Vent. 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
--- NOTE | 2025-09-08 09:13 | EDS_ITS ---
HPI History of Present Illness Chief Complaint: Shortness of Breath Detail of Chief Complaint: Shortness of breath and chest pain Informant: patient Narrative Narrative: Patient presents with chest pain and shortness of breath that started 3 days ago. Patient states she woke up feeling very nauseated short of breath and chest pressure. Since that time she has noticed any time she has any activity she feels very short of breath and nauseated and developed chest pressure. Rest seems to resolve the symptoms. Seen by her primary care physician in the office today and referred to the emergency department. Patient had a heart cath in 2016 that she states was clean. She has no heart history otherwise. She does have history of hypertension and history of PMR. Denies recent travel or surgery [facility] Medical History (Updated 09/08/25 @ 11:[address] Sandip Malone, ) Abnormal EKG Dyspnea on exertion Chest tightness Long-term current use of steroids History of diverticulitis Abdominal discomfort in left lower quadrant Fatigue PMR (polymyalgia rheumatica) COVID Home Medications ?Medication ?Instructions ?Recorded ?Last Taken ?Type aspirin 81 mg chewable tablet 81 mg PO .COMPLEX 09/07/25 History ascorbic acid (vitamin C) 500 mg 500 mg PO DAILY 01/1509/08/25 History capsule ibuprofen 200 mg capsule (Motrin 400 mg PO Q6H PRN fev er or pain 01/15/25 Unknown History IB) omeprazole 20 mg capsule,delayed 20 mg PO DAILY #90 ca ps 01/15/25 09/08/25 Rx release metoprolol tartrate 50 mg tablet 50 mg PO BID #180 tab s 02/24/25 09/07/25 Rx hydrochlorothiazide 25 mg tablet 12.5 mg (1/2 x 25 mg) PO DAILY #90 04/21/25 09/08/25 Rx tabs latanoprost 0.005 % eye drops 1 drp ophthalmic (eye) Q HS 05/14/25 Unknown History prednisone 1 mg tablet 3 mg (3 x 1 mg) PO QDAY #300 tabs 08/25/25 09/08/25 Rx magnesium 200 mg tablet 200 mg PO DAILY 09/08/25 History potassium gluconate 500 mg (83 mg) 500 mg PO DAILY 09/08/25 History tablet Allergy/AdvReac Type Severity Reaction Status Date / Time lisinopril Allergy Mild cough Verified 09/08/25 07:51 acetaminophen (From Percocet) Allergy unknown Verified 09/08/25 07:51 ciprofloxacin (From Cipro) Allergy Hives Verified 09/08/25 07:51 fentanyl Allergy Vomiting Verified 09/08/25 07:51 hydromorphone (From Dilaudid) Allergy unknown Verified 09/08/25 07:51 NSAIDS (Non-Steroidal Allergy unknown Verified 09/08/25 07:51 Anti-Inflamma oxycodone Allergy unknown Verified 09/08/25 07:51 apixaban (From Eliquis) AdvReac Abd Verified 09/08/25 07:51 cramps/diarrhea codeine AdvReac Vomiting Verified 09/08/25 07:51 hydroxychloroquine (From AdvReac Nausea Verified 09/08/25 07:51 Plaquenil) levofloxacin (From Levaquin) AdvReac Nausea/Vom/ Verified 09/08/25 07:51 Diarrhea meperidine HCl (From Demerol) AdvReac Vomiting Verified 09/08/25 07:51 morphine AdvReac Itching Verified 09/08/25 07:51 Peszonj-DFO-SeF Reductase AdvReac Upset Verified 09/08/25 07:51 Inhibitor (Dlkzicu-Njy-Ibw Stomach Reductase Inhibitor) tramadol HCl (From Ultram) AdvReac Vomiting Verified 09/08/25 07:51 Family History Other Cancer Heart disease Surgical History History of carpal tunnel surgery H/O laminectomy S/P right rotator cuff repair H/O: hysterectomy S/P appendectomy Social History Smoking Status: Never smoker alcohol intake: never substance use type: does not use ROS ROS ED Review of Systems ROS Unobtainable: other Constitutional Constitutional ED: Reports lethargy; Denies chills, fever(s), sweats or weight loss Eyes Eyes: Denies blurry vision, change in vision or diplopia ENT ENT ED: Denies rhinorrhea or sore throat Cardiovascular Cardiovascular: Reports chest pain; Denies orthopnea or racing heartbeat Respiratory/Chest Respiratory/Chest: Reports dyspnea and dyspnea on exertion; Denies cough, orthopnea or sputum Gastrointestinal Gastrointestinal: Denies abdominal pain, diarrhea, nausea or vomiting Genitourinary Genitourinary ED: Denies dysuria, hematuria or urinary frequency Musculoskeletal Musculoskeletal: Denies arthralgias, back pain, myalgias or neck pain Integumentary Denies abscess, Abrasions or rash Neurologic Neurologic: Denies headache(s) or weakness Psychiatric Psychiatric: Denies anxiety, depression or suicidal thoughts Endocrine Endocrinology: Denies polydipsia, polyphagia or polyuria Hematologic/Lymphatic Hematologic/Lymphatic: Denies easy bleeding, easy bruising or lymphadenopathy Allergic/Immunologic Allergic/Immunologic ED: Denies mouth swelling, tongue swelling or urticaria EXAM Physical Exam Const Vital Signs: 09/08/25 09:02 09/08/25 09:05 09/08/25 09:06 Temperature 97.8 F 97.8 F Temperature Source Oral Oral Pulse Rate 114 H 114 H Respiratory Rate 20 H 20 H Respiratory Effort Short of Breath Blood Pressure 198/131 H 198/131 H Blood Pressure Mean 153 153 Pulse Ox 93 93 Oxygen Delivery Method Nasal Cannula Nasal Cannula Nasal Cannula Oxygen Flow Rate (L/min) 2 2 2 09/08/25 09:12 09/08/25 09:26 09/08/25 09:30 Temperature Temperature Source Pulse Rate 112 H 110 H Respiratory Rate 21 H 17 Respiratory Effort Blood Pressure 187/174 H Blood Pressure Mean 179 Pulse Ox 91 89 Oxygen Delivery Method Nasal Cannula Oxygen Flow Rate (L/min) 2 09/08/25 10:00 09/08/25 10:05 09/08/25 10:35 Temperature 97.9 F Temperature Source Oral Pulse Rate 108 H 109 H Respiratory Rate 19 H 18 Respiratory Effort Blood Pressure 187/104 H Blood Pressure Mean 131 Pulse Ox 92 93 86 Oxygen Delivery Method Room Air Oxygen Flow Rate (L/min) 09/08/25 10:45 09/08/25 11:00 09/08/25 11:00 Temperature 98 F Temperature Source Oral Pulse Rate 115 H 120 H Respiratory Rate 31 H 20 H Respiratory Effort Blood Pressure 182/111 H Blood Pressure Mean 134 Pulse Ox 89 94 93 Oxygen Delivery Method Nasal Cannula Oxygen Flow Rate (L/min) 2 09/08/25 11:04 09/08/25 11:15 09/08/25 11:30 Temperature Temperature Source Pulse Rate 124 H 113 H 116 H Respiratory Rate 17 21 H 22 H Respiratory Effort Blood Pressure 182/111 H Blood Pressure Mean 132 Pulse Ox 94 95 94 Oxygen Delivery Method Oxygen Flow Rate (L/min) 09/08/25 11:45 09/08/25 12:00 Temperature Temperature Source Pulse Rate 112 H 111 H Respiratory Rate 18 22 H Respiratory Effort Blood Pressure Blood Pressure Mean Pulse Ox 93 97 Oxygen Delivery Method Oxygen Flow Rate (L/min) Positive well nourished and well developed General Appearance ED: well developed and NAD HEENT Reports TM's clear and moist mucous membranes normocephalic and atraumatic; Negative for trauma or tenderness Tympanic Membrane ED: Yes TM's clear Eyes PERRL and EOMs intact bilaterally General Eye ED: Negative for pale conjunctiva or scleral icterus Neck no lymphadenopathy, supple and no JVD General: Negative for tenderness Chest Wall inspection of chest normal and palpation of chest normal Chest: Negative for tenderness Resp normal respiratory effort and clear to auscultation bilaterally Effort and Inspection: Negative for respiratory distress or pain with movement Auscultation: Negative for rhonchi, wheezes or diminished lung sounds Cardio regular rate, regular rhythm, S1 normal heart sound, S2 normal heart sound and no murmurs Peripheral Pulses: pulses 2+ throughout GI normal to inspection, nondistended, normoactive bowel sounds, soft to palpation, non-tender, non-distended and no masses Back/Spine no CVA tenderness and no thoracic nor lumbar tenderness Extremity normal to inspection General Extremety ED: Negative for edema General Extremity: Negative for edema Neuro oriented x3, CN's II-XII intact bilaterally, no sensory deficits noted and gait normal Sensorium / Orientation: awake, alert, oriented to person, oriented to place and oriented to time Motor Exam: strength 5/5 throughout and strength abnormal Psych mental status grossly normal Skin no rashes or lesions noted and no wounds MDM MDM MDM Narrative Medical decision making narrative: Patient presents with exertional chest pain and shortness of breath and tachycardia on arrival. In the differential would be acute coronary syndrome versus PE although really does not have many risk factors for PE. IV established. EKG obtained showed a sinus tachycardia with rate of 108 bpm with first-degree AV block. CBC with differential shows a white 16.2 with hemoglobin 14.5 and platelet count of 310. Chemistries unremarkable. First troponin elevated at 118. Creatinine was creatinine was 1.59 and BUN 24. D-dimer elevated 1.12. This point still in the differential would be PE versus acute coronary syndrome and I did start patient on a heparin drip. CTA of the chest was obtained which showed bilateral PEs with heart strain. Patient is clinically stable but is on 2 L nasal cannula O2. Will discuss case with hospitalist to evaluate patient for admission. Spoke with hospitalist who asked that I speak with vascular surgeon Dr. Worley. Dr. Worley did not have any new recommendations other than continuing with the heparin and standard treatment at this time and he will consult with patient and offer all options for treatment. Lab Data Attestation: I reviewed the patient's lab results. Labs: Laboratory Results - last 24 hr 09/08/25 09/08/25 08:53 11:15 WBC 16.2 H RBC 4.59 Hgb 14.5 Hct 44.2 MCV 96.3 MCH 31.6 MCHC 32.8 RDW Std Deviation 47.8 H RDW Coeff of Yelitza 13.4 Plt Count 310 MPV 9.6 Immature Gran % (Auto) 0.400 Neut % (Auto) 75.5 H Lymph % (Auto) 12.6 L [place] % (Auto) 9.4 Eos % (Auto) 1.6 Baso % (Auto) 0.5 Absolute Neuts (auto) 12.3 H Absolute Lymphs (auto) 2.05 Nucleated RBC % 0 D-Dimer Quant (PE/DVT) 1.12 H* Sodium 139 Potassium 3.2 L Chloride 97 L Carbon Dioxide 21.8 Anion Gap 20 H BUN 24 H Creatinine 1.59 H Estim Creat Clear Calc 22.90 L Est GFR (MDRD) Non-Af 31 L BUN/Creatinine Ratio 15.2 Glucose 156 H Calcium 10.2 Troponin T High Sens 118 H* Troponin T Hi Sens 2 Hr 161 H* Radiography Diagnostic Testing: Clinical Impression(s) from Imaging Studies Chest X-Ray 09/08/25 09:12 IMPRESSION: No Acute Findings. Reading Location: [id number] Chest CTA 09/08/25 10:22 IMPRESSION: There is a 1 cm irregular scar-like density at the right lung base, image 55/261. follow-up is recommended. There is a 7.5 cm cyst in the midpole of the left kidney. There is evidence of right heart enlargement, consistent with strain. There are large central pulmonary emboli with occlusive and nonocclusive components in the right main pulmonary artery and proximal branches, and in the left main pulmonary artery and proximal branches with a moderate clot load. Critical results were discussed with Dr. Hannah by Dr. Acosta at the time of dictation. Reading Location: [facility] 1 view chest x-ray obtained interpreted by myself as no evidence of infiltrate or pneumothorax or acute disease process. Radiology in agreement. EKG Initial EKG: Attestation: I personally reviewed and interpreted this EKG as follows: Comments: Sinus rhythm with rate of 108 bpm with first-degree AV block Discharge Plan Dx/Rx/DC Orders Clinical Impression: Dyspnea, Pulmonary embolism, Elevated troponin Disposition Disposition: Acute Care [facility]
[2025-09-08] MEDS: 0.9% Normal Saline (1000mL) 1,000 ML 150 ML IV (09:20)
[2025-09-08 09:25] LABS: Hematocrit 44.2 % (37-47); Hemoglobin 14.5 g/dL (12.0-15.0); Immature Granulocytes Count 0.070 X10^3/uL (0.0-0.0); Mean Corp Hgb Conc 32.8 g/dL (32-36); Mean Corpuscular Volume 96.3 fL (81-99); Mean Platelet Vol. 9.6 fl (6.2-12.0); NRBC Flagged by Analyzer 0 % (0-5); POSITIVE DIFFERENTIAL YES; Platelet Count 310 K/mm3 (150-450); RBC Distribution Width CV 13.4 % (11.6-14.6); RBC Distribution Width SD 47.8 fl (35.1-43.9); Red Blood Count 4.59 M/mm3 (4.2-5.4); White Blood Count 16.2 K/mm3 (4.4-11.0)
[2025-09-08 09:26] LABS: Differential Indicated SCAN CRITERIA MET
[2025-09-08 09:54] LABS: D-Dimer Quantitative (DVT/PE) 1.12 FEU/ug/m (0.27-0.49)
[2025-09-08 10:04] LABS: Anion Gap 20 (5-15); BUN 24 mg/dL (4-19); BUN/Creat Ratio 15.2 RATIO (10-20); Calcium,Total 10.2 mg/dL (7.6-11.0); Carbon Dioxide 21.8 mmol/L (21.0-32.0); Chloride 97 mmol/L (98-108); Estimated Creatinine Clearance 22.90 ml/min (50-250); Glucose 156 mg/dL (70-99); Potassium 3.2 mmol/L (3.3-5.1)
[2025-09-08 10:09] LABS: Troponin T High Sensitivity 118 ng/L (<=14)
--- NOTE | 2025-09-08 10:22 | CT_ITS ---
PROCEDURE: CTA CHEST W/WO CONTRAST 09/08/2025 REASON FOR EXAM: CHEST PAIN, SHORTNESS OF BREATH, HIGH D-DIMER TECHNIQUE: Procedure Code: [id number] Modality: CT Procedure: CTA CHEST W/WO CONTRAST Multiplanar Sagittal and Coronal images were obtained. CONTRAST: 100 cc Isovue 370 One or more dose reduction techniques were used (e.g., Automated exposure control, adjustment of the mA and/or kV according to patient size, use of iterative reconstruction technique). RADIATION DOSE SUMMARY: DLP: 210 mGycm COMPARISON: None FINDINGS: Hardware: None Lymph nodes: There is no pathologic adenopathy by size criteria. Heart: Atherosclerotic calcifications are noted. RV/LV Diameter Ratio: 1.2 there is evidence of right heart strain. Thoracic Aorta: Intact Pulmonary Vessels: Main pulmonary artery Hounsfield units = 700. There are large central pulmonary emboli with occlusive and nonocclusive components in the right main pulmonary artery and proximal branches, and in the left main pulmonary artery and proximal branches with a moderate clot load. Lungs and Airways: There is a 1 cm irregular scar-like density at the right lung base, image 55/261. Pleura: There is a 1 cm right pleural effusion. Upper Abdomen: There is a 7.5 cm cyst in the midpole of the left kidney. Bones: There is no acute bony abnormality. CT/CTA Chest W/WO Contrast IMPRESSION: There is a 1 cm irregular scar-like density at the right lung base, image 55/26 1. follow-up is recommended. There is a 7.5 cm cyst in the midpole of the left kidney. There is evidence of right heart enlargement, consistent with strain. There are large central pulmonary emboli with occlusive and nonocclusive compon ents in the right main pulmonary artery and proximal branches, and in the left main pulmonary artery and proximal branches with a moderate clot load. Critical results were discussed with Dr. Hannah by Dr. Acosta at the time of dictation. Reading Location: [facility]
[2025-09-08] MEDS: HEPARIN/D5w 25,000 UNITS 25,000 UNITS/250 ML IV.SOLN. 10.4 UNITS CONT INF (10:36)
[2025-09-08] MEDS: Heparin Injection (Vial) 5,000 UNIT/ML VIAL 5000 UNIT IV (10:36)
[2025-09-08 11:57] LABS: Troponin T High Sens 2 HR 161 ng/L (<=14)
--- NOTE | 2025-09-08 12:24 | HP.PCM.HOS_ITS ---
HPI - General General Date of Admission: 09/08/25 HPI Narrative BREANNA FERNÁNDEZ, is a 89 F who presents to the hospital 3 days of shortness of breath. She followed up with her PCP today for evaluation of her PMR which is doing well and she is on low-dose steroids for. However she relayed to her PCP that she been having shortness of breath as well as some chest tightness over the weekend however did not seek evaluation. Given her symptoms her PCP sent her to the emergency room where she was found to have large bilateral central pulmonary embolisms with right heart strain with an elevated troponin. She was started on a heparin drip and will be admitted for further monitoring and evaluation by vascular surgery. [facility] Medical History Abnormal EKG Dyspnea on exertion Chest tightness Long-term current use of steroids History of diverticulitis Abdominal discomfort in left lower quadrant Fatigue PMR (polymyalgia rheumatica) COVID Home Medications ?Medication ?Instructions ?Recorded ?Last Taken ?Type aspirin 81 mg chewable tablet 81 mg PO .COMPLEX 09/07/25 History ascorbic acid (vitamin C) 500 mg 500 mg PO DAILY 01/1509/08/25 History capsule ibuprofen 200 mg capsule (Motrin 400 mg PO Q6H PRN fev er or pain 01/15/25 Unknown History IB) omeprazole 20 mg capsule,delayed 20 mg PO DAILY #90 ca ps 01/15/25 09/08/25 Rx release metoprolol tartrate 50 mg tablet 50 mg PO BID HR #180 tabs 02/24/25 09/08/25 Rx hydrochlorothiazide 25 mg tablet 12.5 mg (1/2 x 25 mg) PO DAILY #90 04/21/25 09/08/25 Rx tabs latanoprost 0.005 % eye drops 1 drp ophthalmic (eye) Q HS eye 05/14/25 Unknown History prednisone 1 mg tablet 3 mg (3 x 1 mg) PO QDAY #300 tabs 08/25/25 09/08/25 Rx magnesium 200 mg tablet 200 mg PO DAILY 09/08/25 History potassium gluconate 500 mg (83 mg) 500 mg PO DAILY 09/08/25 History tablet Allergy/AdvReac Type Severity Reaction Status Date / Time lisinopril Allergy Mild cough Verified 09/08/25 07:51 acetaminophen (From Percocet) Allergy unknown Verified 09/08/25 07:51 ciprofloxacin (From Cipro) Allergy Hives Verified 09/08/25 07:51 fentanyl Allergy Vomiting Verified 09/08/25 07:51 hydromorphone (From Dilaudid) Allergy unknown Verified 09/08/25 07:51 NSAIDS (Non-Steroidal Allergy unknown Verified 09/08/25 07:51 Anti-Inflamma oxycodone Allergy unknown Verified 09/08/25 07:51 apixaban (From Eliquis) AdvReac Abd Verified 09/08/25 07:51 cramps/diarrhea codeine AdvReac Vomiting Verified 09/08/25 07:51 hydroxychloroquine (From AdvReac Nausea Verified 09/08/25 07:51 Plaquenil) levofloxacin (From Levaquin) AdvReac Nausea/Vom/ Verified 09/08/25 07:51 Diarrhea meperidine HCl (From Demerol) AdvReac Vomiting Verified 09/08/25 07:51 morphine AdvReac Itching Verified 09/08/25 07:51 Sxoxnje-NQW-UoQ Reductase AdvReac Upset Verified 09/08/25 07:51 Inhibitor (Lhshxsl-Kkw-Dbp Stomach Reductase Inhibitor) tramadol HCl (From Ultram) AdvReac Vomiting Verified 09/08/25 07:51 Family History Other Cancer Heart disease Surgical History History of carpal tunnel surgery H/O laminectomy S/P right rotator cuff repair H/O: hysterectomy S/P appendectomy Social History Smoking Status: Former smoker alcohol intake: never substance use type: does not use ROS Constitutional Constitutional: Denies chills, fatigue, fever(s) or malaise Eyes Eyes: Denies blurry vision ENT HEENT: Denies headache(s) or nasal discharge Cardiovascular Cardiovascular: Reports chest pain and dyspnea on exertion; Denies syncope Respiratory/Chest Respiratory/Chest: Reports shortness of breath at rest and shortness of breath with exertion; Denies cough Gastrointestinal Gastrointestinal: Denies constipation, diarrhea, nausea or vomiting Genitourinary Genitourinary: Denies dysuria Neurologic Neurologic: Denies focal weakness, numbness or tremor(s) Psychiatric Psychiatric: Denies anxiety or depression Vital Signs Vital Signs Vital Signs: 09/08/25 09:02 09/08/25 09:05 09/08/25 09:06 Temperature 97.8 F 97.8 F Temperature Source Oral Oral Pulse Rate 114 H 114 H Respiratory Rate 20 H 20 H Respiratory Effort Short of Breath Blood Pressure 198/131 H 198/131 H Blood Pressure Mean 153 153 Pulse Ox 93 93 Oxygen Delivery Method Nasal Cannula Nasal Cannula Nasal Cannula Oxygen Flow Rate (L/min) 2 2 2 09/08/25 09:12 09/08/25 09:26 09/08/25 09:30 Temperature Temperature Source Pulse Rate 112 H 110 H Respiratory Rate 21 H 17 Respiratory Effort Blood Pressure 187/174 H Blood Pressure Mean 179 Pulse Ox 91 89 Oxygen Delivery Method Nasal Cannula Oxygen Flow Rate (L/min) 2 09/08/25 10:00 09/08/25 10:05 09/08/25 10:35 Temperature 97.9 F Temperature Source Oral Pulse Rate 108 H 109 H Respiratory Rate 19 H 18 Respiratory Effort Blood Pressure 187/104 H Blood Pressure Mean 131 Pulse Ox 92 93 86 Oxygen Delivery Method Room Air Oxygen Flow Rate (L/min) 09/08/25 10:45 09/08/25 11:00 09/08/25 11:00 Temperature 98 F Temperature Source Oral Pulse Rate 115 H 120 H Respiratory Rate 31 H 20 H Respiratory Effort Blood Pressure 182/111 H Blood Pressure Mean 134 Pulse Ox 89 94 93 Oxygen Delivery Method Nasal Cannula Oxygen Flow Rate (L/min) 2 09/08/25 11:04 09/08/25 11:15 09/08/25 11:30 Temperature Temperature Source Pulse Rate 124 H 113 H 116 H Respiratory Rate 17 21 H 22 H Respiratory Effort Blood Pressure 182/111 H Blood Pressure Mean 132 Pulse Ox 94 95 94 Oxygen Delivery Method Oxygen Flow Rate (L/min) 09/08/25 11:45 09/08/25 12:00 09/08/25 12:19 Temperature 97.6 F L Temperature Source Pulse Rate 112 H 111 H 112 H Respiratory Rate 18 22 H 20 H Respiratory Effort Blood Pressure 156/111 H Blood Pressure Mean 126 Pulse Ox 93 97 94 Oxygen Delivery Method Oxygen Flow Rate (L/min) Weight Weight: 153 lb 3.54 oz Body Mass Index (BMI) 24.7 Physical Exam Narrative General: Alert, Oriented x3, Cooperative, No apparent distress HEENT: Atraumatic, PERRLA, EOMI, Normocephalic Oral: Moist Mucosa Neck: Supple, No JVD Lungs: Diminished, Normal air movement, No rhonchi, No wheeze, No rales Cardiovascular: Tachycardic, Regular Rhythm, Normal S1, Normal S2, No murmurs Abdomen: Soft, Non Tender, Non-Distended, No Hepato-splenomegaly Extremities: No edema, Capillary Refill Less than 3 Seconds Skin: No rashes, No breakdown Musculoskeletal: No Tenderness to Palpation of Joints or Extremities Neurological: No focal neurological deficits, moves all extremities Psych/Mental Status: Normal Affect, Appropriate Results Lab / Micro Data 09/08/25 08:53 09/08/25 08:53 Labs: Laboratory Results - last 24 hr 09/08/25 08:53: WBC 16.2 H, RBC 4.59, Hgb 14.5, Hct 44.2, MCV 96.3, MCH 31.6, MCHC 32.8, RDW Std Deviation 47.8 H, RDW Coeff of Yelitza 13.4, Plt Count 310, MPV 9.6, Immature Gran % (Auto) 0.400, Neut % (Auto) 75.5 H, Lymph % (Auto) 12.6 L, [place] % (Auto) 9.4, Eos % (Auto) 1.6, Baso % (Auto) 0.5, Absolute Neuts (auto) 12.3 H, Absolute Lymphs (auto) 2.05, Nucleated RBC % 0, D-Dimer Quant (PE/DVT) 1.12 H*, Sodium 139, Potassium 3.2 L, Chloride 97 L, Carbon Dioxide 21.8, Anion Gap 20 H, BUN 24 H, Creatinine 1.59 H, Estim Creat Clear Calc 22.90 L, Est GFR (MDRD) Non-Af 31 L, BUN/Creatinine Ratio 15.2, Glucose 156 H, Calcium 10.2, T roponin T High Sens 118 H* 09/08/25 11:15: Troponin T Hi Sens 2 Hr 161 H* Imaging Radiology Impression Chest X-Ray 09/08/25 09:12 IMPRESSION: No Acute Findings. Reading Location: [id number] Chest CTA 09/08/25 10:22 IMPRESSION: There is a 1 cm irregular scar-like density at the right lung base, image 55/261. follow-up is recommended. There is a 7.5 cm cyst in the midpole of the left kidney. There is evidence of right heart enlargement, consistent with strain. There are large central pulmonary emboli with occlusive and nonocclusive components in the right main pulmonary artery and proximal branches, and in the left main pulmonary artery and proximal branches with a moderate clot load. Critical results were discussed with Dr. Hannah by Dr. Acosta at the time of dictation. Reading [facility] Assessment & Plan Assessment/Plan (1) Pulmonary embolism: PLAN: Plan 1. Acute hypoxic respiratory insufficiency secondary to bilateral central pulmonary embolisms ? Given the right heart strain will obtain an echo ? Will consult vascular surgery ? Continue with the heparin drip ? Will hold her home blood pressure medications at this time 2. Essential HTN ? Blood pressures are elevated ? Will hold her home blood pressure medications at this time given the right heart strain in the setting of her pulmonary embolisms 3. GERD ? Stable ? Continue PPI 4. PMR ? Stable ? Continue with her home prednisone dosing at 1 mg daily DVT: Heparin drip 75 minutes was spent on direct patient care, including documentation as well as chart review and collaboration with colleagues Charges/Coding Visit Charges Inpatient E&M: 18232 Init Hosp L3
[2025-09-08 12:59] LABS: Prothrombin Time (Protime)PT. 13.7 SECONDS (11.7-14.9)
[2025-09-08 13:00] LABS: Partial Thromboplast Time 27.2 Seconds (24.1-36.2)
--- NOTE | 2025-09-08 13:12 | CASEMGMT ---
Care Management Face to Face with patient for initial transition planning/care coordination assessment in the ED.? This underwriter mortgage loan introduced self and role at [facility]. Patient alert and oriented. Patient willing to participate in assessment and is able to answer all questions appropriately.? Care providers, pharmacy, and demographics verified. Admitting Diagnosis: PE Other diagnosis history: ?PMR, h/o diverticulitis, dyspnea PCP: ?Becky Specialists: Erlin Preferred Pharmacy:? [facility] Insurance: ?[employer] Prescription Benefit: ?Yes Living Will/HPOA: ?Both completed and on file LNOK: Friend, Jaxson Huggins Living Arrangements: Patient lives alone in a condo, 3 steps to enter from front or garage.? Is independent with ADLs and IADLs Transportation: ?patient drives DME: ?walk in shower HHC: ?none SNF/Rehab: ?none Community Resources: ?none Behavioral Health History: ?none Patient goals: Patient wishes to discharge home, denies need for home health care at this time. Patient denies any further needs or concerns at this time. Disposition Plan: admission to acute; RN CM/SW to follow for discharge planning needs that may arise. Johanna Colon, MANAGER PRODUCT, DIRECTOR [facility]
--- NOTE | 2025-09-08 13:19 | ECHOD_ITS ---
Reason For Study Reason For Study: EMBOLI Procedure This was a 2D Doppler, Color Flow transthoracic echocardiogram. Myocardial strain analysis was performed in this exam to aid in the assessment of cardiac function. The study was technically difficult. Exam performed portable in patient room. Left Ventricle Normal LV size. Moderate eccentric left ventricular hypertrophy. The left ventricular ejection fraction is 55 %. No regional wall motion abnormalities noted. Right Ventricle Moderately dilated right ventricle. Moderate global right ventricular systolic dysfunction. Apical sparing pattern. Mitral Valve Normal mitral valve. Tricuspid Valve Normal tricuspid valve. Moderate (2+) tricuspid valve insufficiency. Pulmonary artery systolic pressure is 60 mmHg. Moderate pulmonary hypertension. Aortic Valve Trisinus/trileaflet aortic valve. Pulmonic Valve Normal pulmonic valve. Great Vessels Normal aortic root. The pulmonary artery is normal size. Inferior vena cava collapse with respiration. Pericardium/Pleural No pericardial effusion. MMode/2D Measurements & Calculations LVIDd: 2.5 cm IVSd: 1.3 cm LVOT diam: 2.0 cm LVIDs: 1.3 cm LVPWd: 0.94 cm LVOT area: 3.2 cm2 RVDd: 5.2 cm FS: 47.9 % Ao root diam: 3.2 cm asc Aorta Diam: 3.5 cm LAV(MOD- bp): 36.5 ml LAV(MOD- bp) Indexed: 20.5 ml/m2 LAV(MOD- sp2): 46.1 ml LAV(MOD- sp4): 26.6 ml LVAd ap4: 10.1 cm2 LVAd ap2: 11.9 cm2 SV(MOD- sp4): 11.3 ml LVLd ap4: 5.8 cm LVLd ap2: 6.2 cm SI(MOD- sp4): 6.3 ml/m2 EDV(MOD-sp4): 15.1 ml EDV(MOD-sp2): 20.0 ml EDV(sp4-el): 14.9 ml EDV(sp2-el): 19.4 ml LVAs ap4: 4.3 cm2 LVAs ap2: 6.2 cm2 LVLs ap4: 4.4 cm LVLs ap2: 4.2 cm ESV(MOD-sp4): 3.8 ml ESV(MOD-sp2): 7.7 ml ESV(sp4-el): 3.5 ml ESV(sp2-el): 7.7 ml EF(MOD-sp4): 74.8 % EF(MOD-sp2): 61.8 % EF(sp4-el): 76.3 % SV(MOD-sp2): 12.4 ml SV(sp4-el): 11.4 ml Ao sinus diam: 3.2 cm SI(MOD-sp2): 6.9 ml/m2 Ao ST Junction: 2.7 cm LA A4 area: 12.7 cm2 LA dimension(2D): 2.3 cm TAPSE: 1.1 cm RA A4 area: 17.7 cm2 Doppler Measurements & Calculations Lat Peak E' Matty: 10.8 cm/sec Med Peak E' Matty: 11.4 cm/sec Ao V2 max: 121.8 cm/sec Ao max P.9 mmHg Ao V2 mean: 99.6 cm/sec Ao mean P.2 mmHg Ao V2 VTI: 15.5 cm AV (velocity ratio): 0.85 FERNANDO(I,D): 2.7 cm2 FERNANDO(V,D): 2.5 cm2 LV V1 max: 95.1 cm/sec SV(LVOT): 42.0 ml PA V2 max: 43.7 cm/sec LV V1 max P.6 mmHg LV V1 mean P.6 mmHg LV V1 mean: 78.6 cm/sec LV V1 VTI: 13.2 cm TR max matty: 363.9 cm/sec TR max P.0 mmHg ECHO/Echo Complete Interpretation Summary The left ventricular ejection fraction is 55 %. Normal LV size. Moderate eccentric left ventricular hypertrophy. Moderate pulmonary hypertension. Moderately dilated right ventricle. Moderate global right ventricular systolic dysfunction. Ordering Physician: Chandan Caceres Referring Physician: Claire Pena M.D. Performed By: Amber Brown RDCS
[2025-09-08 14:18] LABS: Troponin T High Sens 4 HR 386 ng/L (<=14)
[2025-09-08 14:37] LABS: Pro- Brain NATRIURETIC PEPTIDE 4186 pg/mL (<=1800)
[2025-09-08 19:27] LABS: Partial Thromboplast Time 117.4 Seconds (24.1-36.2)
[2025-09-08] MEDS: Latanoprost 0.005% 1 Bottle 1 DRP OPHTHALMIC (20:49)
[2025-09-09 03:45] VITALS: BP 120/89; PULSE 94; RESP 16; TEMP 36.7; O2SAT 98
[2025-09-09 04:13] LABS: Hematocrit 36.9 % (37-47); Hemoglobin 12.2 g/dL (12.0-15.0); Immature Granulocytes Count 0.030 X10^3/uL (0.0-0.0); Mean Corp Hgb Conc 33.1 g/dL (32-36); Mean Corpuscular Volume 93.9 fL (81-99); Mean Platelet Vol. 9.5 fl (6.2-12.0); NRBC Flagged by Analyzer 0 % (0-5); Platelet Count 242 K/mm3 (150-450); RBC Distribution Width CV 13.5 % (11.6-14.6); RBC Distribution Width SD 46.0 fl (35.1-43.9); Red Blood Count 3.93 M/mm3 (4.2-5.4); White Blood Count 13.7 K/mm3 (4.4-11.0)
[2025-09-09 04:23] LABS: Partial Thromboplast Time 66.8 Seconds (24.1-36.2)
[2025-09-09 04:38] LABS: Anion Gap 15 (5-15); BUN 25 mg/dL (4-19); BUN/Creat Ratio 16.6 RATIO (10-20); Calcium,Total 8.9 mg/dL (7.6-11.0); Carbon Dioxide 21.4 mmol/L (21.0-32.0); Chloride 99 mmol/L (98-108); Estimated Creatinine Clearance 23.95 ml/min (50-250); Glucose 109 mg/dL (70-99); Potassium 4.0 mmol/L (3.3-5.1)
[2025-09-09 06:38] VITALS: O2SAT 93
--- NOTE | 2025-09-09 08:07 | EX.PCM.CON.S ---
Assessment & Plan Assessment/Plan (1) Pulmonary embolism: PLAN: She is a candidate for thrombectomy given the size and location of her PE as well as evidence of right heart strain; at the same time, she is hemodynamically stable, has low O2 requirement, and has relatively mild symptoms at present by her report. The risks, benefits, recovery of PE thrombectomy and alternatives (anticoagulation alone) were discussed in detail. All of her questions were answered to her apparent satisfaction. She does not wish to proceed with thrombectomy, she opts for conservative management with anticoagulation alone. Will plan for her to ambulate with nursing this morning; as long as she tolerates this well and continues to opt for conservative management then OK for normal diet. Will continue to follow while she is inpatient. Recommend a minimum of 6 months of full anticoagulation; reasonable to consider indefinite anticoagulation given unprovoked nature and severity at presentation of her VTE. HPI Consult Data Date of Consult: 09/09/25 HPI Narrative HPI Narrative: LANIE FERNÁNDEZ, is a 89 F who presented to the [facility] ER yesterday from her PCP office for chest pain, SOB with exertion. She reports that on Monday she first noticed the chest pain, increased SOB, and increased HR with exercise, just with doing normal household tasks like getting her mail. She also had some nausea and vomiting. These symptoms improved with rest and so she did not seek medical attention through the weekend. She had a previously scheduled appointment with her PCP regarding her PMR on Monday, she was still having these symptoms, pulse ox 94 on RA after rest, and was noted to have some EKG changes in the office and so was sent to the ER via EMS. In the ER, she was low 90s pulse ox on RA and was placed on 2 lpm via NC, hypertensive, tachycardic. She had CTA Chest which demonstrated large central PE extending into the bilateral main pulmonary arteries and proximal branches, evidence of R heart strain. She had echocardiogram which confirmed moderate global right ventricular dysfunction. She had elevated troponin and BNP. She was admitted and placed on a heparin drip. We are consulted for consideration of PE thrombectomy. I saw Lanie at bedside this morning. She relates feeling better this morning, nausea has resolved. She denies any chest pain or shortness of breath at rest. She is speaking in complete sentences without noticeable shortness of breath. She has not been out of bed yet to ambulate. She reports she had noticed a bit of LLE swelling over the last few weeks, but nothing pitting and she didn't have any associated pain, redness, warmth, or other symptoms so did not think much of it. She has no history of prior VTE. No recent travel, surgery, or otherwise decreased level of activity. She reports she is fairly active, she is not one to spend to much time sitting, she frequently ambulates through the day. She has been on a prednisone taper for PMR, these symptoms have been much better. [facility], [facility] Medical History Abnormal EKG Dyspnea on exertion Chest tightness Long-term current use of steroids History of diverticulitis Abdominal discomfort in left lower quadrant Fatigue PMR (polymyalgia rheumatica) COVID Home Medications ?Medication ?Instructions ?Recorded ?Last Taken ?Type aspirin 81 mg chewable tablet 81 mg PO .COMPLEX 07/21/22 09/07/25 History ascorbic acid (vitamin C) 500 mg 500 mg PO DAILY 01/15/25 09/08/25 History capsule ibuprofen 200 mg capsule (Motrin 400 mg PO Q6H PRN fever or pain 01/15/25 Unknown History IB) omeprazole 20 mg capsule,delayed 20 mg PO DAILY #90 caps 01/15/25 09/08/25 Rx release metoprolol tartrate 50 mg tablet 50 mg PO BID HR #180 tabs 02/24/25 09/08/25 Rx hydrochlorothiazide 25 mg tablet 12.5 mg (1/2 x 25 mg) PO DAILY #90 04/21/25 09/08/25 Rx tabs latanoprost 0.005 % eye drops 1 drp ophthalmic (eye) QHS eye 05/14/25 Unknown History prednisone 1 mg tablet 3 mg (3 x 1 mg) PO QDAY #300 tabs 08/25/25 09/08/25 Rx magnesium 200 mg tablet 200 mg PO DAILY 09/08/25 09/08/25 History potassium gluconate 500 mg (83 mg) 500 mg PO DAILY 09/08/25 09/08/25 History tablet Allergy/AdvReac Type Severity Reaction Status Date / Time lisinopril Allergy Mild cough Verified 09/08/25 07:51 acetaminophen (From Percocet) Allergy unknown Verified 09/08/25 07:51 ciprofloxacin (From Cipro) Allergy Hives Verified 09/08/25 07:51 fentanyl Allergy Vomiting Verified 09/08/25 07:51 hydromorphone (From Dilaudid) Allergy unknown Verified 09/08/25 07:51 NSAIDS (Non-Steroidal Allergy unknown Verified 09/08/25 07:51 Anti-Inflamma oxycodone Allergy unknown Verified 09/08/25 07:51 apixaban (From Eliquis) AdvReac Abd Verified 09/08/25 07:51 cramps/diarrhea codeine AdvReac Vomiting Verified 09/08/25 07:51 hydroxychloroquine (From AdvReac Nausea Verified 09/08/25 07:51 Plaquenil) levofloxacin (From Levaquin) AdvReac Nausea/Vom/ Verified 09/08/25 07:51 Diarrhea meperidine HCl (From Demerol) AdvReac Vomiting Verified 09/08/25 07:51 morphine AdvReac Itching Verified 09/08/25 07:51 Hvbnurr-KQO-ZgG Reductase AdvReac Upset Verified 09/08/25 07:51 Inhibitor (Udqwuel-Jrt-Lsr Stomach Reductase Inhibitor) tramadol HCl (From Ultram) AdvReac Vomiting Verified 09/08/25 07:51 Family History Other Cancer Heart disease Surgical History History of carpal tunnel surgery H/O laminectomy S/P right rotator cuff repair H/O: hysterectomy S/P appendectomy Social History Smoking Status: Former smoker alcohol intake: never substance use type: does not use Physical Exam Const alert, oriented x3 and no apparent distress General Appearance: cooperative and comfortable HEENT normocephalic, head/scalp atraumatic, hearing grossly normal bilaterally, external ears normal and external nose normal Eyes General Eye: normal appearance of both eyes Neck General: normal visual inspection and trachea midline Resp normal respiratory effort, no retractions and no use of accessory muscles Effort and Inspection: able to speak in complete sentences; Negative for labored, grunting, stridor or audible wheezes Cardio regular rate and regular rhythm Extremity normal to inspection and no clubbing, cyanosis or edema Skin no rashes or lesions noted Trauma: no lacerations or abrasions Neuro oriented x3, CN's II-XII intact bilaterally, moves all extremities and no focal motor deficits Speech: speech normal Psych mental status grossly normal Appearance: grossly normal Attitude: calm and engaged Activity / Motor Behavior: appropriate eye contact Speech: normal speech Judgement: judgement good Lab / Micro Data 09/09/25 04:06 09/09/25 04:06 Labs: Laboratory Results - last 24 hr 09/08/25 08:53: WBC 16.2 H, RBC 4.59, Hgb 14.5, Hct 44.2, MCV 96.3, MCH 31.6, MCHC 32.8, RDW Std Deviation 47.8 H, RDW Coeff of Yelitza 13.4, Plt Count 310, MPV 9.6, Immature Gran % (Auto) 0.400, Neut % (Auto) 75.5 H, Lymph % (Auto) 12.6 L, [place] % (Auto) 9.4, Eos % (Auto) 1.6, Baso % (Auto) 0.5, Absolute Neuts (auto) 12.3 H, Absolute Lymphs (auto) 2.05, Nucleated RBC % 0, PT 13.7, INR 1.0, APTT 27.2, D-Dimer Quant (PE/DVT) 1.12 H*, Sodium 139, Potassium 3.2 L, Chloride 97 L, Carbon Dioxide 21.8, Anion Gap 20 H, BUN 24 H, Creatinine 1.59 H, Estim Creat Clear Calc 22.90 L, Est GFR (MDRD) Non-Af 31 L, BUN/Creatinine Ratio 15.2, Glucose 156 H, Calcium 10.2, Troponin T High Sens 118 H* 09/08/25 11:15: Troponin T Hi Sens 2 Hr 161 H* 09/08/25 13:19: Troponin T Hi Sens 4Hr 386 H*, NT pro BNP II 4186 H 09/08/25 16:14: APTT 117.4 H* 09/09/25 04:06: WBC 13.7 H, RBC 3.93 L, Hgb 12.2, Hct 36.9 L, MCV 93.9, MCH 31.0, MCHC 33.1, RDW Std Deviation 46.0 H, RDW Coeff of Yelitza 13.5, Plt Count 242, MPV 9.5, Immature Gran % (Auto) 0.200, Neut % (Auto) 71.8 H, Lymph % (Auto) 17.9 L, [place] % (Auto) 9.2, Eos % (Auto) 0.5, Baso % (Auto) 0.4, Absolute Neuts (auto) 9.8 H, Absolute Lymphs (auto) 2.44, Nucleated RBC % 0, APTT 66.8 H, Sodium 135, Potassium 4.0, Chloride 99, Carbon Dioxide 21.4, Anion Gap 15, BUN 25 H, Creatinine 1.52 H, Estim Creat Clear Calc 23.95 L, Est GFR (MDRD) Non-Af 33 L, BUN/Creatinine Ratio 16.6, Glucose 109 H, Calcium 8.9 Imaging Radiology Impression Chest X-Ray 09/08/25 09:12 IMPRESSION: No Acute Findings. Reading Location: [id number] Chest CTA 09/08/25 10:22 IMPRESSION: There is a 1 cm irregular scar-like density at the right lung base, image 55/261. follow-up is recommended. There is a 7.5 cm cyst in the midpole of the left kidney. There is evidence of right heart enlargement, consistent with strain. There are large central pulmonary emboli with occlusive and nonocclusive components in the right main pulmonary artery and proximal branches, and in the left main pulmonary artery and proximal branches with a moderate clot load. Critical results were discussed with Dr. Hannah by Dr. Acosta at the time of dictation. Reading [facility] Echocardiogram 09/08/25 13:19 Interpretation Summary The left ventricular ejection fraction is 55 %. Normal LV size. Moderate eccentric left ventricular hypertrophy. Moderate pulmonary hypertension. Moderately dilated right ventricle. Moderate global right ventricular systolic dysfunction. Ordering Physician: Chandan Caceres Referring Physician: Claire Pena M.D. Performed By: Amber Brown RDCS Charges/Coding Visit Charges Inpatient E&M: 44784 Init Hosp L1
[2025-09-09 08:54] VITALS: BP 138/96; PULSE 95; RESP 20; TEMP 36.3; O2SAT 93
[2025-09-09 08:55] VITALS: O2SAT 91; O2SAT 93
--- NOTE | 2025-09-09 10:12 | PN.HOSP_ITS ---
Subjective Subjective Doing very well, back to room air today. Plan for amatory pulse ox tomorrow morning will transition to [facility] Objective Data Objective Data Vital Signs: Vital Signs Temp Pulse Resp BP Pulse Ox O2 Del Method O2 Flow Rate 97.3 F L 95 20 H 138/96 H 93 Room Air 2 09/09/25 08:54 09/09/25 08:54 09/09/25 08:54 09/09/25 08:54 09/09/25 08:54 09/09/25 08:56 09/09/25 08:54 Oxygen Flow Rate (L/min) 2 Oxygen Delivery Method Room Air Weight: 145 lb 1.027 oz Body Mass Index (BMI) 23.4 Intake & Output: Intake and Output for Last 24 Hours 09/08/25 09/09/25 09/10/25 03:59 03:59 03:59 Intake Total 1206.79 / 1206.79 Output Total 300 / 300 Balance 906.79 / 906.79 Lab / Micro Data 09/09/25 04:06 09/09/25 04:06 Labs: Laboratory Results - last 24 hr 09/08/25 08:53: PT 13.7, INR 1.0, APTT 27.2 09/08/25 11:15: Troponin T Hi Sens 2 Hr 161 H* 09/08/25 13:19: Troponin T Hi Sens 4Hr 386 H*, NT pro BNP II 4186 H 09/08/25 16:14: APTT 117.4 H* 09/09/25 04:06: WBC 13.7 H, RBC 3.93 L, Hgb 12.2, Hct 36.9 L, MCV 93.9, MCH 31.0, MCHC 33.1, RDW Std Deviation 46.0 H, RDW Coeff of Yelitza 13.5, Plt Count 242, MPV 9.5, Immature Gran % (Auto) 0.200, Neut % (Auto) 71.8 H, Lymph % (Auto) 17.9 L, [place] % (Auto) 9.2, Eos % (Auto) 0.5, Baso % (Auto) 0.4, Absolute Neuts (auto) 9.8 H, Absolute Lymphs (auto) 2.44, Nucleated RBC % 0, APTT 66.8 H, Sodium 135, Potassium 4.0, Chloride 99, Carbon Dioxide 21.4, Anion Gap 15, BUN 25 H, C reatinine 1.52 H, Estim Creat Clear Calc 23.95 L, Est GFR (MDRD) Non-Af 33 L, BUN/Creatinine Ratio 16.6, Glucose 109 H, Calcium 8.9 Radiography Diagnostic Testing: Radiology Impression Chest CTA 09/08/25 10:22 IMPRESSION: There is a 1 cm irregular scar-like density at the right lung base, image 55/261. follow-up is recommended. There is a 7.5 cm cyst in the midpole of the left kidney. There is evidence of right heart enlargement, consistent with strain. There are large central pulmonary emboli with occlusive and nonocclusive components in the right main pulmonary artery and proximal branches, and in the left main pulmonary artery and proximal branches with a moderate clot load. Critical results were discussed with Dr. Hannah by Dr. Acosta at the time of dictation. Reading Location: [facility] Echocardiogram 09/08/25 13:19 Interpretation Summary The left ventricular ejection fraction is 55 %. Normal LV size. Moderate eccentric left ventricular hypertrophy. Moderate pulmonary hypertension. Moderately dilated right ventricle. Moderate global right ventricular systolic dysfunction. Ordering Physician: Chandan Caceres Referring Physician: Claire Pena M.D. Performed By: Amber Brown RDCS Physical Exam Narrative General: Alert, Oriented x3, Cooperative, No apparent distress HEENT: Atraumatic, PERRLA, EOMI, Normocephalic Oral: Moist Mucosa Neck: Supple, No JVD Lungs: Diminished, Normal air movement, No rhonchi, No wheeze, No rales Cardiovascular: Tachycardic, Regular Rhythm, Normal S1, Normal S2, No murmurs Abdomen: Soft, Non Tender, Non-Distended, No Hepato-splenomegaly Extremities: No edema, Capillary Refill Less than 3 Seconds Skin: No rashes, No breakdown Musculoskeletal: No Tenderness to Palpation of Joints or Extremities Neurological: No focal neurological deficits, moves all extremities Psych/Mental Status: Normal Affect, Appropriate Assessment & Plan Assessment/Plan (1) Pulmonary embolism: PLAN: Plan 1. Acute hypoxic respiratory insufficiency secondary to bilateral central pulmonary embolisms ? Echo with an EF of 55% and moderate right ventricular dilatation with moderate pulmonary hypertension ? Will consult vascular surgery ? Continue with Suman, she does not want to proceed with thrombectomy ? Will hold her home blood pressure medications at this time 2. Essential HTN ? Blood pressures are elevated ? Will hold her home blood pressure medications at this time given the right heart strain in the setting of her pulmonary embolisms 3. GERD ? Stable ? Continue PPI 4. PMR ? Stable ? Continue with her home prednisone dosing at 1 mg daily DVT: Suman Charges/Coding Visit Charges Inpatient E&M: 06978 Subs Hosp L2
[2025-09-09 10:22] LABS: Partial Thromboplast Time 57.7 Seconds (24.1-36.2)
[2025-09-09 14:12] VITALS: BP 118/76; PULSE 110; RESP 16; TEMP 36.2; O2SAT 92
--- NOTE | 2025-09-09 16:29 | CHAPLAIN ---
Type of Pastoral Visit ___ Initial Visit ___ Follow-up Visit ___ On-call Visit ___ General Patient Visit ___ Spiritual Assessment ___ Family Conference ___ Bereavement ___ Rapid Response ___ Code Blue ___ Other (describe below) Pastoral Care Referral From ___ Patient ___ Family ___ Nurse ___ Physician ___ Qual Research Manager ___ Medical Instrument Technician ___ Other (describe below) Sacrament/Intervention ___ Active listening ___ Anointing ___ Hoahaoism ___ Bereavement ___ Communion ___ Amanda exploration ___ ___ Life review ___ Prayer ___ Reconciliation ___ Sacrament of Sick ___ Supportive presence ___ Wedding ___ Other (describe below) Pastoral Comments two attempts and the patient is sound asleep both times
[2025-09-09 20:10] VITALS: BP 114/74; PULSE 103; RESP 18; TEMP 36.8; O2SAT 96
[2025-09-09] MEDS: Latanoprost 0.005% 1 Bottle 1 DRP OPHTHALMIC (22:38)
[2025-09-09] MEDS: APIXABAN 5 MG TABLET 10 MG PO (22:38)
[2025-09-10 02:00] VITALS: BP 133/96; PULSE 97; RESP 18; TEMP 36.6; O2SAT 98
[2025-09-10 06:12] LABS: Hematocrit 36.6 % (37-47); Hemoglobin 12.2 g/dL (12.0-15.0); Immature Granulocytes Count 0.030 X10^3/uL (0.0-0.0); Mean Corp Hgb Conc 33.3 g/dL (32-36); Mean Corpuscular Volume 94.1 fL (81-99); Mean Platelet Vol. 9.8 fl (6.2-12.0); NRBC Flagged by Analyzer 0 % (0-5); Platelet Count 240 K/mm3 (150-450); RBC Distribution Width CV 13.4 % (11.6-14.6); RBC Distribution Width SD 45.9 fl (35.1-43.9); Red Blood Count 3.89 M/mm3 (4.2-5.4); White Blood Count 9.8 K/mm3 (4.4-11.0)
[2025-09-10 06:46] LABS: Anion Gap 14 (5-15); BUN 24 mg/dL (4-19); BUN/Creat Ratio 16.0 RATIO (10-20); Calcium,Total 8.8 mg/dL (7.6-11.0); Carbon Dioxide 22.5 mmol/L (21.0-32.0); Chloride 100 mmol/L (98-108); Estimated Creatinine Clearance 24.76 ml/min (50-250); Glucose 102 mg/dL (70-99); Potassium 3.7 mmol/L (3.3-5.1)
[2025-09-10] MEDS: APIXABAN 5 MG TABLET 10 MG PO ×2 (10:29→21:43)
[2025-09-10 11:02] VITALS: O2SAT 64; O2SAT 66; O2SAT 90
--- NOTE | 2025-09-10 14:23 | CHAPLAIN ---
Type of Pastoral Visit _x__ Initial Visit ___ Follow-up Visit ___ On-call Visit ___ General Patient Visit ___ Spiritual Assessment ___ Family Conference ___ Bereavement ___ Rapid Response ___ Code Blue ___ Other (describe below) Pastoral Care Referral From _x__ Patient ___ Family ___ Nurse ___ Physician ___ Mill Representative ___ Certified Recreational Therapist ___ Other (describe below) Sacrament/Intervention _x__ Active listening ___ Anointing ___ Spiritism ___ Bereavement ___ Communion ___ Amanda exploration ___ _x__ Life review ___ Prayer ___ Reconciliation ___ Sacrament of Sick ___ Supportive presence ___ Wedding ___ Other (describe below) Pastoral Comments patient had not been available until this opportunity this afternoon; pt now is sitting up and alert; her professor of mechanical engineering is in the room; this inhalation therapy aide introduces self and offers to give her clergy the continuation of his ministry; both are interactive; pt continues with giving her perspective of this health issue through humor and personal thoughts of what God is doing; pt gives some life review and expresses gratitude for stopping to visit
[2025-09-10 14:34] VITALS: PULSE 105
[2025-09-10 15:16] VITALS: BP 139/93; PULSE 104; RESP 16; TEMP 36.6; O2SAT 92
--- NOTE | 2025-09-10 19:28 | PCM.PN.HOSP ---
Subjective Subjective Patient was seen and examined today, she appears tachycardic and monitor strips show what appear to be episodic atrial fibrillation. Patient does not recall ever having a diagnosis of atrial fibs. I reviewed the patient's medical records, in 2015 patient was diagnosed with a stroke, according to neurology at that time, there were several small strokes indicating possible embolic strokes and so the patient was placed on Eliquis at that time. Patient states she was taken off the Eliquis due to GI bleed, investigations at that time did not show evidence of where the GI bleed was originating. Patient was kept off Eliquis at that point. Patient was not restarted on her metoprolol when she was admitted, I have elected to restart it and observe the patient on telemetry, she will be reevaluated tomorrow for possible discharge home-she quite possibly will need home oxygen at least short-term, she understands this. Today she required 4 L when walking, at rest she is on 2 L. Objective Data Objective Data Vital Signs: Vital Signs Temp Pulse Resp BP Pulse Ox O2 Del Method O2 Flow Rate 97.9 F 104 H 16 139/93 H 92 Nasal Cannula 2 09/10/25 15:16 09/10/25 15:16 09/10/25 15:16 09/10/25 15:16 09/10/25 15:16 09/10/25 15:16 09/10/25 15:16 Oxygen Flow Rate (L/min) 2 Oxygen Delivery Method Nasal Cannula Weight: 65.8 kg Body Mass Index (BMI) 23.4 Intake & Output: Intake and Output for Last 24 Hours 09/08/25 09/09/25 09/10/25 23:59 23:59 23:59 Intake Total 1206.79 / 1206.79 945.21 / 945.21 1000 / 1000 Output Total 300 / 650 1150 / 1150 Balance 1206.79 / 906.79 645.21 / 295.21 -150 / -150 Lab / Micro Data 09/10/25 05:34 09/10/25 05:34 Labs: Laboratory Results - last 24 hr 09/10/25 05:34: WBC 9.8, RBC 3.89 L, Hgb 12.2, Hct 36.6 L, MCV 94.1, MCH 31.4, MCHC 33.3, RDW Std Deviation 45.9 H, RDW Coeff of Yelitza 13.4, Plt Count 240, MPV 9.8, Immature Gran % (Auto) 0.300, Neut % (Auto) 67.6, Lymph % (Auto) 18.2 L, [place] % (Auto) 10.7 H, Eos % (Auto) 2.7, Baso % (Auto) 0.5, Absolute Neuts (auto) 6.7, Absolute Lymphs (auto) 1.79, Nucleated RBC % 0, Sodium 136, Potassium 3.7, Chloride 100, Carbon Dioxide 22.5, Anion Gap 14, BUN 24 H, Creatinine 1.47 H, Estim Creat Clear Calc 24.76 L, Est GFR (MDRD) Non-Af 34 L, BUN/Creatinine Ratio 16.0, Glucose 102 H, Calcium 8.8 Physical Exam Const alert, oriented x3, no apparent distress and healthy appearing General Appearance: cooperative, well kempt and well developed Orientation / Consciousness: awake, oriented to person, oriented to place and oriented to time HEENT normocephalic and moist oral mucous membranes Eyes PERRL, EOMs intact bilaterally and conjunctivae normal Neck supple, no JVD, thyroid normal and no carotid bruits General: trachea midline Resp normal respiratory effort and clear to auscultation bilaterally Auscultation: Negative for rales, rhonchi or wheezes Cardio regular rate, regular rhythm, S1 normal heart sound, S2 normal heart sound, no murmurs, no rub and no gallops Cardio Narrative: Occasional ectopic beats were noted GI normal to inspection, nondistended, normoactive bowel sounds, soft to palpation, non-tender and non-distended Extremity no clubbing, cyanosis or edema Skin no rashes or lesions noted General Skin Exam: no breakdown Neuro oriented x3, CN's II-XII intact bilaterally, no focal motor deficits and no sensory deficits noted Sensorium / Orientation: awake and alert Speech: speech normal Psych affect normal Assessment & Plan Assessment/Plan (1) Pulmonary embolism: PLAN: Plan 1. Pulmonary embolism-patient will remain on Eliquis at this time #2 hypoxia secondary to #1-oxygen will be weaned if possible, pulse ox will be monitored #3 paroxysmal atrial fibrillation-patient's monitor appears to show periods of atrial fibrillation-patient is asymptomatic with this, patient will be placed back on her metoprolol #4 polymyalgia rheumatica-patient is on low-dose prednisone at this time Total clinical time spent by myself addressing the patient's medical issues, reviewing all of her data, and collaborating with patient's care team: 35 minutes Charges/Coding Visit Charges Inpatient E&M: 16764 Subs Hosp L2
[2025-09-10 21:36] VITALS: BP 135/94; PULSE 88; RESP 18; TEMP 36.4; O2SAT 98
[2025-09-10] MEDS: Latanoprost 0.005% 1 Bottle 1 DRP OPHTHALMIC (21:41)
[2025-09-10 21:43] VITALS: PULSE 88
[2025-09-11 03:00] VITALS: BP 136/95; PULSE 90; RESP 18; TEMP 36.3; O2SAT 98
[2025-09-11 09:00] VITALS: BP 111/76; PULSE 101; RESP 17; TEMP 36.7; O2SAT 96
[2025-09-11 09:15] VITALS: PULSE 101
[2025-09-11] MEDS: APIXABAN 5 MG TABLET 10 MG PO (09:15)
[2025-09-11 09:20] VITALS: O2SAT 88; O2SAT 91; O2SAT 94
[2025-09-11 09:46] VITALS: O2SAT 91
--- NOTE | 2025-09-11 14:09 | PCM.DC ---
Discharge Instructions DC O2, CPAP, BIPAP needs Home O2 Discharge instructions: No Dressing / Incision Discharge Activity: Return to Normal Activity Weight Bearing Status: Full weight bearing Follow Up Care Test Results: Test results from this visit will be discussed in further detail at your follow-up appointment, if applicable. Discharge Plan Admission Admit Date/Time: 09/08/25 12:06 Primary Reason for Your Visit: Pulmonary embolism, hypoxia Attending Provider: Oswald Egan Primary Care Provider: Claire Pena Consulting Providers: Vasiliy Worley; Chandan Caceres Instructions Additional Instructions / Restrictions: Take only Tylenol or narcotics for pain, do not take any arthritis pills such as ibuprofen or Aleve while you are on Eliquis Discharge Orders/Prescriptions Prescriptions: New Eliquis 5 mg Tablet 10 mg PO BID Qty: 0 0RF Rx Instructions: Take as directed Continued ascorbic acid (vitamin C) 500 mg capsule 500 mg PO DAILY omeprazole 20 mg capsule,delayed release(DR/EC) 20 mg PO DAILY Qty: 90 3RF latanoprost 0.005 % drops 1 drp ophthalmic (eye) QHS Patient Comments: per pt started different eye drop as trial recently unsure what name potassium gluconate 500 mg (83 mg) tablet 500 mg PO DAILY magnesium 200 mg tablet 200 mg PO DAILY metoprolol tartrate 50 mg tablet 50 mg PO BID Qty: 180 3RF prednisone 1 mg tablet 3 mg PO QDAY Qty: 300 1RF Patient Comments: pt states took 2mg today (09/08/25) Discontinued aspirin 81 mg tablet,chewable 81 mg PO .COMPLEX Patient Comments: heart health Rx Instructions: 81 mg orally mon; resume 04/22/17 ibuprofen [Motrin IB] 200 mg capsule 400 mg PO Q6H PRN (Reason: fever or pain) hydrochlorothiazide 25 mg tablet 12.5 mg PO DAILY Qty: 90 1RF Referrals / Follow Up: Claire Pena MD [Primary Care Provider, Internal Medicine - [facility]] - Within 2 Weeks Disposition Disposition (needs filled in before D/C Order can be placed): Home, Self Care
--- NOTE | 2025-09-11 14:20 | PCM.DC.SUM ---
Providers Date of Admission: 09/08/25 Date of Discharge: 09/11/25 Primary Care Physician: Dr. Claire Pena MD Consultations 09/08/25 15:59 Consult: Vascular Surgery Routine Consulting Provider: Vasiliy Worley Reason for Consult: Thrombectomy? EMERGENT Consult: No Notified: Yes Date Notified: 09/08/25 Time Notified: 16:00 Method of Notification: ED Physician Initiated Reason For Visit: PE Diagnosis Discharge Diagnosis (1) Pulmonary embolism: Status: Acute Code(s): I26.99 - Other pulmonary embolism without acute cor pulmonale Plan 1. Pulmonary embolism-patient will remain on Eliquis at this time #2 hypoxia secondary to #1-oxygen will be weaned if possible, pulse ox will be monitored #3 paroxysmal atrial fibrillation-patient's monitor appears to show periods of atrial fibrillation-patient is asymptomatic with this, patient will be placed back on her metoprolol #4 polymyalgia rheumatica-patient is on low-dose prednisone at this time #5 moderate pulmonary hypertension Medications at Discharge Home Medications ascorbic acid (vitamin C) 500 mg capsule 500 mg PO DAILY vitamin 01/15/25 omeprazole 20 mg capsule,delayed release 20 mg PO DAILY reflux #90 caps 01/15/25 metoprolol tartrate 50 mg tablet 50 mg PO BID HR #180 tabs 02/24/25 latanoprost 0.005 % eye drops 1 drp ophthalmic (eye) QHS eye 05/14/25 prednisone 1 mg tablet 3 mg (3 x 1 mg) PO QDAY inflammation #300 tabs 08/25/25 magnesium 200 mg tablet 200 mg PO DAILY supplement 09/08/25 potassium gluconate 500 mg (83 mg) tablet 500 mg PO DAILY supplement 09/08/25 apixaban 5 mg tablet (Eliquis) 10 mg (2 x 5 mg) PO BID #0 tabs 09/11/25 Hospital Course Operations None Procedures 2-D Echocardiogram Summary of Care Provided Minutes Spent on Discharge: 32 Hospital Course: This 89-year-old white female was seen in the emergency room at [facility] with complaints of shortness of breath which started approximately 3 days prior. Patient complained of nausea and shortness of breath with chest pressure also. Workup in the emergency room included a CT of the chest which showed bilateral PEs with heart strain, patient required supplemental oxygen at a low flow rate, vascular surgery was contacted and the discussion about patient care was undertaken with vascula surgery. Patient was admitted to PCU and fully anticoagulated, she saw vascular surgery in consultation but refused to undergo thrombectomy. Patient required oxygen during her hospitalization but this was ultimately able to be weaned off. Echocardiogram showed a normal EF with pulmonary hypertension which was moderate. On 09/11/2025, patient was seen and examined: On examination she appeared in good health and spirits, she does not appear to be in any distress. Vital signs as documented. Skin warm and dry and without overt rashes. Neck without JVD, thyroid appears normal, trachea is midline, neck is supple. Lungs clear, normal air movement was noted. Heart exam notable for regular rhythm, normal sounds and absence of murmurs, rubs or gallops. Abdomen unremarkable and without evidence of organomegaly, masses, or abdominal aortic enlargement, bowel sounds are present in all 4 quadrants, no abdominal tenderness was noted. Extremities nonedematous, no cyanosis was noted, no clubbing was noted. Neuro: Cranial nerves II through XII are grossly intact, no focal motor deficits were noted, sensation to light touch and pinprick is intact, motor exam 5/5 throughout. Psych: Patient is alert and oriented x3, she does not appear anxious or depressed, she does not appear agitated. Patient was discharged home in stable condition on 09/11/2025. Weight / BMI Weight Weight: 65.8 kg Body Mass Index (BMI) 23.4 ABG / Lab / Microbiology Data 09/10/25 05:34 09/10/25 05:34 D/C Instructions Weight Bearing Status: Full weight bearing DC O2, CPAP, BIPAP Needs Home O2 Discharge instructions: No Meaningful Use Info Meaningful Use Meaningful Use Diagnoses (Choose all that apply): VTE VTE Anticoag overlap given w/in hospital stay or rx'd at dc?: Yes Pt receive overlap for 5 days?: No Reason overlap not ordered, prescribed, or given for 5 days: Treatment Not Indicated Discharge Plan Admission Admit Date/Time: 09/08/25 12:06 Primary Reason for Your Visit: Pulmonary embolism, hypoxia Attending Provider: Oswald Egan Primary Care Provider: Claire Pena Consulting Providers: Vasiliy Worley; Chandan Caceres Instructions Additional Instructions / Restrictions: Take only Tylenol or narcotics for pain, do not take any arthritis pills such as ibuprofen or Aleve while you are on Eliquis Discharge Orders/Prescriptions Prescriptions: New Eliquis 5 mg Tablet 10 mg PO BID Qty: 0 0RF Rx Instructions: Take as directed Continued ascorbic acid (vitamin C) 500 mg capsule 500 mg PO DAILY omeprazole 20 mg capsule,delayed release(DR/EC) 20 mg PO DAILY Qty: 90 3RF latanoprost 0.005 % drops 1 drp ophthalmic (eye) QHS Patient Comments: per pt started different eye drop as trial recently unsure what name potassium gluconate 500 mg (83 mg) tablet 500 mg PO DAILY magnesium 200 mg tablet 200 mg PO DAILY metoprolol tartrate 50 mg tablet 50 mg PO BID Qty: 180 3RF prednisone 1 mg tablet 3 mg PO QDAY Qty: 300 1RF Patient Comments: pt states took 2mg today (09/08/25) Discontinued aspirin 81 mg tablet,chewable 81 mg PO .COMPLEX Patient Comments: heart health Rx Instructions: 81 mg orally mon; resume 04/22/17 ibuprofen [Motrin IB] 200 mg capsule 400 mg PO Q6H PRN (Reason: fever or pain) hydrochlorothiazide 25 mg tablet 12.5 mg PO DAILY Qty: 90 1RF Referrals / Follow Up: Claire Pena MD [Primary Care Provider, Internal Medicine - [facility]] - Within 2 Weeks Disposition Disposition (needs filled in before D/C Order can be placed): Home, Self Care Charges/Coding Visit Charges Inpatient E&M: 99087 Disch Hosp >30min
--- NOTE | 2025-09-11 15:58 | PHA.DC.COU.R ---
Pharmacy [facility] has performed discharge medication counseling for this patient. The patient was counseled on the following discharge medications and changes in medications for homegoing review. - Apixaban 5 mg tablet The Reason for Use, instructions for use, and potential side effects were reviewed for all new medications. The patient's questions regarding all of their medications were answered. - Answered all questions about the mechanism of action, side effects, drug interactions, dosing and monitoring the patient had. She had no further questions at this time. The patient was able to verbally demonstrate an understanding of their discharge medications. Medications at Discharge Home Medications ascorbic acid (vitamin C) 500 mg capsule 500 mg PO DAILY vitamin 01/15/25 omeprazole 20 mg capsule,delayed release 20 mg PO DAILY reflux #90 caps 01/15/25 metoprolol tartrate 50 mg tablet 50 mg PO BID HR #180 tabs 02/24/25 latanoprost 0.005 % eye drops 1 drp ophthalmic (eye) QHS eye 05/14/25 prednisone 1 mg tablet 3 mg (3 x 1 mg) PO QDAY inflammation #300 tabs 08/25/25 magnesium 200 mg tablet 200 mg PO DAILY supplement 09/08/25 potassium gluconate 500 mg (83 mg) tablet 500 mg PO DAILY supplement 09/08/25 apixaban 5 mg tablet (Eliquis) 10 mg (2 x 5 mg) PO BID #0 tabs 09/11/25
--- NOTE | 2025-09-11 16:14 | CASEMGMT ---
MAYNOR CHARLTON NOTE: Home O2 testing completed this morning. Pt qualifies for O2 @ 2 L/M @ rest and 3 L/M w/exertion. Pt made aware. Questions answered. Script for O2 received from Dr Egan and sent to [employer] via [employer] along w/home O2 testing results. Gal from [facility] aware pt is discharging home today and will be up to deliver portable O2 tank to pt's room. Ranjan WEST RN CM
== END 2025-09-11 17:05 | disposition home or self-care (01) | DRG 175 ==
LOC: ED 12:14 → PCU 12:19
PROVIDERS: Surgery Trauma Surgery; Admitting Provider Family Medicine; Emergency Provider Emergency Medicine; PCP Internal Medicine; Visit Provider Internal Medicine
DX: I26.09 Other pulmonary embolism with acute cor pulmonale (principal); I24.89 Other forms of acute ischemic heart disease; I10 Essential (primary) hypertension; M35.3 Polymyalgia rheumatica; I48.0 Paroxysmal atrial fibrillation; K21.9 Gastro-esophageal reflux disease without esophagitis; R09.02 Hypoxemia; Z79.52 Long term (current) use of systemic steroids; Z79.82 Long term (current) use of aspirin; Z79.899 Other long term (current) drug therapy; Z86.16 Personal history of COVID-19; Z87.891 Personal history of nicotine dependence
CPT/HCPCS: 36415; 71045; 71275; 80048; 83880; 84484; 85025; 85379; 85610; 85730; 93005; 93306; 99285; Q9967; A4216